=== PATIENT | female | born 1990 | race Caucasian/White ===

== ENCOUNTER → 2019-01-21 | Outpatient (REF) | payer OTHER, MEDICAID ==
[2019-01-21 18:30] LABS: HEMATOCRIT 34.5 % (36.0-47.0); HEMOGLOBIN 11.8 g/dl (12.0-15.5); MEAN CORPUSCULAR HEMOGLOBIN 29.7 pg (27.0-33.0); MEAN CORPUSCULAR HGB CONC 34.2 g/dl (32.0-36.5); MEAN CORPUSCULAR VOLUME 86.9 fl (80.0-96.0); PLATELET COUNT, AUTOMATED 185 10^3/uL (150-450); RED BLOOD COUNT 3.97 10^6/uL (4.00-5.40); WHITE BLOOD COUNT 7.4 10^3/uL (4.0-10.0)
[2019-01-21 19:02] LABS: HCG, SERUM QUANTITATIVE 82604 MIU/ML
[2019-01-21 19:36] LABS: RUBELLA IgG QUALITATIVE IMMUNE (IMMUNE)
[2019-01-21 20:05] LABS: HIV 1&2 SCREEN CENTAUR NEGATIVE (NEGATIVE)
[2019-01-23 10:01] LABS: HEPATITIS C VIRUS ABY INDEX < 0.0 INDEX (<0.8)
== END ==
LOC: M LAB REF 16:37
PROVIDERS: ATTEND Obstetrics & Gynecology
DX: O36.80X0 Pregnancy with inconclusive fetal viability, not applicable or unspecified (principal); Z32.01 Encounter for pregnancy test, result positive; Z3A.00 Weeks of gestation of pregnancy not specified

== ENCOUNTER → 2019-07-30 | Outpatient (REF) | payer OTHER ==
[~2019-07-30] MED LIST: BETA0.0543 TOP; CLON-412; CLON0.3T PO; GYNE3CRE PV; IBUP-1114 PO; LAMO5CHW4 PO; MAPA500T2 PO; ONDA-83 SL; ONDA8TAB10; PENI500T PO; PERI0.126 PO; PNVTAB4; PRENTAB9 PO; REGL10TA6 PO; TRAZ-257; VALT1TAB PO; VENL75CA47; ZOFR4TAB14 PO
== END ==
LOC: MERGE 17:12 → M LAB REF 17:12
PROVIDERS: ATTEND Obstetrics & Gynecology
DX: Z34.83 Encounter for supervision of other normal pregnancy, third trimester (principal)

== ENCOUNTER 2019-08-24 07:11 | Inpatient (IN) | payer MEDICAID, OTHER ==
[~2019-08-24] VITALS: Ht 157.5 cm; Wt 65.0 kg
[2019-08-24] MEDS ORDERED: OXYTOCIN 30 UNITS IN 0.9% NaCl 500ML IV BAG (J2590) As Ordered ONE (07:28)
[2019-08-24 07:53] VITALS: BP 120/81
[2019-08-24] MEDS ORDERED: LR 1,000 ML IV SCH (07:58)
[2019-08-24] MEDS ORDERED: OXYTOCIN DRIP 30 UNITS in IV 1 EA IV SCH (07:58)
[2019-08-24] MEDS ORDERED: MEASLES,MUMPS,RUBELLA VACCINE INJ (MMR-II) (90707) SC SCH (08:00)
[2019-08-24] MEDS ORDERED: ACETAMINOPHEN TAB 650MG DOSE (2X325MG) PO PRN (08:00)
[2019-08-24] MEDS ORDERED: ACETAMINOPHEN 500 MG TAB PO PRN (08:00)
[2019-08-24] MEDS ORDERED: DIBUCAINE 1% OINTMENT 30GM TOP PRN (08:00)
[2019-08-24] MEDS ORDERED: IBUPROFEN 800 MG TAB PO PRN (08:00)
[2019-08-24] MEDS ORDERED: DOCUSATE SODIUM 100 MG CAP PO PRN (08:00)
[2019-08-24] MEDS ORDERED: PROMETHAZINE 25 MG TAB PO PRN (08:00)
[2019-08-24] MEDS ORDERED: IBUPROFEN 600 MG TAB PO PRN (08:00)
[2019-08-24] MEDS ORDERED: ONDANSETRON 4MG/2ML VIAL (J2405) IV PRN (08:00)
[2019-08-24] MEDS ORDERED: RHOGAM 300 MCG (1500 IU) INJ (J2790) IM SCH (08:00)
[2019-08-24 08:26] LABS: HEMATOCRIT 35.7 % (36.0-47.0); HEMOGLOBIN 12.3 g/dl (12.0-15.5); MEAN CORPUSCULAR HEMOGLOBIN 29.9 pg (27.0-33.0); MEAN CORPUSCULAR HGB CONC 34.5 g/dl (32.0-36.5); MEAN CORPUSCULAR VOLUME 86.7 fl (80.0-96.0); PLATELET COUNT, AUTOMATED 212 10^3/uL (150-450); RED BLOOD COUNT 4.12 10^6/uL (4.00-5.40); WHITE BLOOD COUNT 10.8 10^3/uL (4.0-10.0)
[2019-08-24] MEDS: PRENATAL VITAMINS CHEWABLE TABLET PO SCH (09:00)
[2019-08-24 09:01] VITALS: BP 114/75
[2019-08-24 09:50] VITALS: BP 123/82
[2019-08-24 18:00] VITALS: BP 111/70
[2019-08-25 06:10] VITALS: BP 113/78
[2019-08-25] MEDS ORDERED: medroxyPROGESTERone ACET IM SUSP 150 MG/ML VIAL (J1050) IM ONE (08:00)
[2019-08-25] MEDS: PRENATAL VITAMINS CHEWABLE TABLET PO SCH (09:21)
[2019-08-25] MEDS ORDERED: INFLUENZA QUADRIVALENT PF VACCINE 0.5ML SYRINGE (90686) IM ONE (14:00)
== END 2019-08-25 19:45 | disposition home or self-care (01) | DRG 560 ==
LOC: M LDO 07:11 → M LDI 07:17 → M OBS 09:45
PROVIDERS: ADMIT Obstetrics & Gynecology; ATTEND Obstetrics & Gynecology
PROC: 10E0XZZ Delivery of Products of Conception, External Approach (ICD-10-PCS; principal; 2019-08-24)
DX: O80 Encounter for full-term uncomplicated delivery (principal); Z3A.39 39 weeks gestation of pregnancy; Z37.0 Single live birth

== ENCOUNTER 2020-06-10 18:08 | Emergency (ER) | payer OTHER ==
[~2020-06-10] VITALS: Ht 157.5 cm; Wt 68.2 kg
[2020-06-10] MEDS ORDERED: NS 1,000 ML IV ONE (18:30)
[2020-06-10] MEDS ORDERED: FLUO10CA16 PO (18:31)
[2020-06-10] MEDS ORDERED: METOCLOPRAMIDE INJ 10MG/2ML VIAL (J2765 PER 1) IV ONE (18:45)
[2020-06-10] MEDS ORDERED: DICYCLOMINE 10 MG CAP PO ONE (18:45)
[2020-06-10 18:49] LABS: BASO % 0.4 % (0.0-1.0); EOS % 0.4 % (0.0-3.0); HEMATOCRIT 39.4 % (36.0-47.0); HEMOGLOBIN 13.6 g/dl (12.0-15.5); LYMPH # 1.6 10^3/uL (1.5-5.0); LYMPH % 18.8 % (24.0-44.0); MEAN CORPUSCULAR HEMOGLOBIN 30.3 pg (27.0-33.0); MEAN CORPUSCULAR HGB CONC 34.5 g/dl (32.0-36.5); MEAN CORPUSCULAR VOLUME 87.8 fl (80.0-96.0); MONO # 0.6 10^3/uL (0.0-0.8); MONO % 6.8 % (0.0-5.0); NEUTROPHILS # 6.2 10^3/uL (1.5-8.5); NEUTROPHILS % 73.4 % (36.0-66.0); PLATELET COUNT, AUTOMATED 255 10^3/uL (150-450); RED BLOOD COUNT 4.49 10^6/uL (4.00-5.40); WHITE BLOOD COUNT 8.4 10^3/uL (4.0-10.0)
[2020-06-10 19:21] LABS: ALBUMIN 3.9 GM/DL (3.2-5.2); BILIRUBIN,DIRECT 0.1 MG/DL (0.0-0.2); BILIRUBIN,TOTAL 0.5 MG/DL (0.2-1.0); TOTAL PROTEIN 7.5 GM/DL (6.4-8.2)
[2020-06-10] MEDS ORDERED: POTASSIUM CHLORIDE 10 MEQ SR TABLET PO ONE (19:30)
[2020-06-10] MEDS ORDERED: REGL10TA6 PO (19:35)
[2020-06-10 19:47] VITALS: BP 134/71
== END 2020-06-10 19:49 | disposition home or self-care (01) ==
LOC: M ED 18:08
DX: R11.2 Nausea with vomiting, unspecified (principal); R19.7 Diarrhea, unspecified
CPT/HCPCS: 80047; 80076; 83690; 84702; 85025; 96361; 96374; 99284; J2765

== ENCOUNTER 2020-08-03 07:30 | Emergency (ER) | payer OTHER ==
[~2020-08-03] VITALS: Ht 157.5 cm; Wt 72.7 kg
[~2020-08-03 07:30] MED LIST changes: +FLUO10CA16 PO
[2020-08-03] MEDS ORDERED: ZOFR4TAB16 PO (07:48)
[2020-08-03] MEDS ORDERED: NS 1,000 ML IV ONE (08:00)
[2020-08-03] MEDS ORDERED: PANTOPRAZOLE 40MG VIAL (C9113 PER 1) IV ONE (08:00)
[2020-08-03] MEDS ORDERED: PROMETHAZINE INJ 25 MG/ML VIAL (J2550) IV ONE (08:00)
[2020-08-03 08:25] LABS: BASO % 0.5 % (0.0-1.0); EOS % 0.5 % (0.0-3.0); HEMATOCRIT 41.7 % (36.0-47.0); HEMOGLOBIN 14.3 g/dl (12.0-15.5); LYMPH # 1.3 10^3/uL (1.5-5.0); LYMPH % 19.1 % (24.0-44.0); MEAN CORPUSCULAR HEMOGLOBIN 31.1 pg (27.0-33.0); MEAN CORPUSCULAR HGB CONC 34.3 g/dl (32.0-36.5); MEAN CORPUSCULAR VOLUME 90.7 fl (80.0-96.0); MONO # 0.5 10^3/uL (0.0-0.8); MONO % 7.1 % (0.0-5.0); NEUTROPHILS # 4.8 10^3/uL (1.5-8.5); NEUTROPHILS % 72.3 % (36.0-66.0); PLATELET COUNT, AUTOMATED 255 10^3/uL (150-450); WHITE BLOOD COUNT 6.6 10^3/uL (4.0-10.0)
[2020-08-03 08:54] LABS: ALBUMIN 3.5 GM/DL (3.2-5.2); ALT/SGPT 35 U/L (12-78); BILIRUBIN,DIRECT 0.2 MG/DL (0.0-0.2); BILIRUBIN,TOTAL 0.6 MG/DL (0.2-1.0); BLOOD UREA NITROGEN 11 MG/DL (7-18); CALCIUM LEVEL 8.4 MG/DL (8.5-10.1); CARBON DIOXIDE LEVEL 23 MEQ/L (21-32); CHLORIDE LEVEL 107 MEQ/L (98-107); CREATININE FOR GFR 0.84 MG/DL (0.55-1.30); GLOMERULAR FILTRATION RATE > 60.0 (>60); GLUCOSE, FASTING 136 MG/DL (70-100); LIPASE 80 U/L (73-393); POTASSIUM SERUM 3.6 MEQ/L (3.5-5.1); SODIUM LEVEL 141 MEQ/L (136-145); TOTAL PROTEIN 6.9 GM/DL (6.4-8.2)
[2020-08-03 10:03] VITALS: BP 134/86
[2020-08-03] MEDS ORDERED: PROM25TA22 PO (10:16)
[2020-08-03] MEDS ORDERED: PEPC1TAB5 PO (10:16)
== END 2020-08-03 10:23 | disposition home or self-care (01) ==
LOC: M ED 07:30 → EDBD 07:30 → M ED 10:23
DX: G89.29 Other chronic pain (principal); R10.9 Unspecified abdominal pain; R11.2 Nausea with vomiting, unspecified; R19.7 Diarrhea, unspecified; F33.9 Major depressive disorder, recurrent, unspecified; F41.9 Anxiety disorder, unspecified; Z79.899 Other long term (current) drug therapy
CPT/HCPCS: 36415; 80048; 80076; 83690; 84702; 85025; 96361; 96374; 96375; 99284; C9113

== ENCOUNTER → 2020-08-12 | Outpatient (CLI) | payer OTHER ==
[~2020-08-12] MED LIST changes: +CAPS25CR TOP; +HALO5TA PO; +PEPC1TAB5 PO; +PROM25TA22 PO; +ZOFR4TAB16 PO
--- NOTE | 2020-08-25 08:26 | REP ---
LIVER ULTRASOUND: CLINICAL: Nausea. TECHNIQUE: Real time, kohler scale ultrasound examination using curved array transducer. FINDINGS: The liver and visualized pancreas are normal in contour, size and echogenicity without focal hepatic or pancreatic lesions identified. The gallbladder is normal and without gallstones, wall thickening or pericholecystic fluid. No biliary ductal dilatation is appreciated and the common bile duct measures 4.5 mm diameter. The right kidney is normal in reniform shape and measures 11.2 x 5.1 x 3.9 cm without hydronephrosis. No ascites in the visualized right upper quadrant. IMPRESSION: Normal liver/right upper quadrant ultrasound. MTDD
== END ==
LOC: M RAD 06:48
PROVIDERS: ATTEND Internal Medicine Gastroenterology
DX: R11.0 Nausea (principal)

== ENCOUNTER 2020-08-16 23:42 | Emergency (ER) | payer OTHER ==
[~2020-08-16] VITALS: Ht 157.5 cm; Wt 75.0 kg
[~2020-08-16 23:42] MED LIST changes: -CAPS25CR TOP; -HALO5TA PO
[2020-08-17] MEDS ORDERED: HALOPERIDOL 5MG/ML VIAL (J1630 PER 1) IV ONE
[2020-08-17] MEDS ORDERED: CAPS25CR TOP (01:36)
[2020-08-17 02:12] VITALS: BP 138/74
== END 2020-08-17 02:13 | disposition home or self-care (01) ==
LOC: M ED 23:42
DX: F12.188 Cannabis abuse with other cannabis-induced disorder (principal); R11.2 Nausea with vomiting, unspecified; F41.9 Anxiety disorder, unspecified; Z79.899 Other long term (current) drug therapy
CPT/HCPCS: 80047; 84702; 96374; 99284; J1630

== ENCOUNTER 2020-08-21 04:17 | Emergency (ER) | payer OTHER ==
[~2020-08-21] VITALS: Ht 157.5 cm; Wt 72.4 kg
[~2020-08-21 04:17] MED LIST changes: +CAPS25CR TOP
[2020-08-21 04:58] LABS: BASO # 0.1 10^3/uL (0.0-0.2); BASO % 0.7 % (0.0-1.0); EOS % 0.6 % (0.0-3.0); HEMATOCRIT 42.2 % (36.0-47.0); HEMOGLOBIN 14.3 g/dl (12.0-15.5); LYMPH # 2.4 10^3/uL (1.5-5.0); LYMPH % 35.8 % (24.0-44.0); MEAN CORPUSCULAR HEMOGLOBIN 30.6 pg (27.0-33.0); MEAN CORPUSCULAR HGB CONC 33.9 g/dl (32.0-36.5); MEAN CORPUSCULAR VOLUME 90.2 fl (80.0-96.0); MONO # 0.6 10^3/uL (0.0-0.8); MONO % 8.5 % (0.0-5.0); NEUTROPHILS # 3.6 10^3/uL (1.5-8.5); PLATELET COUNT, AUTOMATED 311 10^3/uL (150-450); RED BLOOD COUNT 4.68 10^6/uL (4.00-5.40); WHITE BLOOD COUNT 6.7 10^3/uL (4.0-10.0)
[2020-08-21 05:26] LABS: ALBUMIN 3.6 GM/DL (3.2-5.2); ALT/SGPT 31 U/L (12-78); BILIRUBIN,DIRECT 0.3 MG/DL (0.0-0.2); BILIRUBIN,TOTAL 0.9 MG/DL (0.2-1.0); LIPASE 62 U/L (73-393); TOTAL PROTEIN 7.4 GM/DL (6.4-8.2)
[2020-08-21] MEDS ORDERED: NS 1,000 ML IV ONE (05:30)
[2020-08-21] MEDS ORDERED: HALOPERIDOL 5MG/ML VIAL (J1630 PER 1) IV ONE (05:30)
[2020-08-21 06:17] LABS: HCG, SERUM QUALITATIVE NEGATIVE (NEGATIVE)
[2020-08-21] MEDS ORDERED: PROMETHAZINE INJ 25 MG/ML VIAL (J2550) IV ONE (06:30)
[2020-08-21] MEDS ORDERED: PROM25TA22 PO (06:49)
[2020-08-21] MEDS ORDERED: HALO5TA PO (06:49)
[2020-08-21 07:16] VITALS: BP 105/79
== END 2020-08-21 07:44 | disposition home or self-care (01) ==
LOC: M ED 04:17
DX: F12.188 Cannabis abuse with other cannabis-induced disorder (principal); Z79.899 Other long term (current) drug therapy
CPT/HCPCS: 80047; 80076; 83690; 84703; 85025; 93041; 96361; 96374; 96375; 99284; J1630

== ENCOUNTER → 2020-08-25 | Outpatient (CLI) | payer OTHER ==
[~2020-08-25] MED LIST changes: +HALO5TA PO
--- NOTE | 2020-09-01 06:22 | REP ---
HEPATOBILIARY SCAN WITH GALLBLADDER EJECTION FRACTION HISTORY: Nausea. Other specified diseases of the gallbladder. TECHNIQUE: 6.6 mCi of Technetium-99m mebrofenin is injected and 5 minute images are acquired over a 60 minute interval. At 65 minutes post-injection, the patient ingested 8 ounces of Ensure and an additional 60 minutes of dynamic images was completed with regions of interest drawn around the gallbladder to plot its ejection fraction. SCINTIGRAPHIC FINDINGS: The initial hepatocellular parenchymal uptake phase is normal and homogeneous. Extrahepatic bile duct and bowel labeling is first visualized at 10 minutes. The gallbladder is first visualized at 15 minutes. Subsequent images demonstrate normal washout from the liver parenchyma into the gallbladder and small intestine. The gallbladder ejection fraction is normal at 50%. IMPRESSION: Normal hepatobiliary scan and gallbladder ejection fraction. MTDD
== END ==
LOC: M RAD 07:33
PROVIDERS: ATTEND Internal Medicine Gastroenterology
DX: K82.8 Other specified diseases of gallbladder (principal); R11.0 Nausea
CPT/HCPCS: 78227; A9537

== ENCOUNTER → 2020-10-19 | Outpatient (CLI) | payer OTHER ==
[~2020-10-19] MED LIST changes: +DICY20TA11 PO; +OMEP-218 PO; +ONDA8TAB10 PO
== END ==
LOC: M LABSMTC 11:30
PROVIDERS: ATTEND Anesthesiology
DX: Z01.812 Encounter for preprocedural laboratory examination (principal); Z20.828 Contact with and (suspected) exposure to other viral communicable diseases

== ENCOUNTER 2020-10-24 12:45 | Day surgery (SDC) | payer OTHER ==
[~2020-10-24] VITALS: Ht 157.5 cm; Wt 80.3 kg
[~2020-10-24 12:45] MED LIST changes: +NS 1,000 ML IV ONE
[2020-10-24] MEDS ORDERED: LIDOCAINE 2% 100MG/5ML SDV (FOR ANES.) As Ordered ONE (14:08)
[2020-10-24] MEDS ORDERED: fentaNYL 100 MCG/2 ML INJECTION (J3010) As Ordered ONE (14:08)
[2020-10-24] MEDS ORDERED: propofoL 200 MG/20 ML VIAL As Ordered ONE ×2 (14:08→15:33)
--- NOTE | 2020-10-24 15:27 | ROOR ---
Patient Name: Ivelisse Potts Procedure Date: 10/24/2020 3:05 PM Date of : 1990 Age: 30 Room: [facility] Gender: Female Note Status: Finalized Procedure: Upper GI endoscopy Indications: Heartburn, Endoscopy to assess diarrhea in patient suspected of having disease of the small-bowel, Nausea with vomiting (Cannabis Hyperemesis suspected. Symptoms persist despite reduction/elimination of cannabis) Providers: Samson GORMAN MD Referring MD: Sveta Núñez NP Requesting Provider: Medicines: Monitored Anesthesia Care Complications: No immediate complications. Procedure: Pre-Anesthesia Assessment: - The heart rate, respiratory rate, oxygen saturations, blood pressure, adequacy of pulmonary ventilation, and response to care were monitored throughout the procedure. The Endoscope was introduced through the mouth, and advanced to the second part of duodenum. The upper GI endoscopy was accomplished without difficulty. The patient tolerated the procedure well. Findings: Mildly severe esophagitis with no bleeding was found at the gastroesophageal junction. Biopsies were taken with a cold forceps for histology. The entire examined stomach was normal. (Large volume) The examined duodenum was normal. Biopsies for histology were taken with a cold forceps for evaluation of celiac disease. Impression: - Mildl esophagitis. Biopsied. - Normal stomach. - Normal examined duodenum. Biopsied. Recommendation: - Use Prilosec (omeprazole) 40 mg PO daily. - Telephone endoscopist for pathology results in 2 weeks. Procedure Code(s): --- Professional --- 43424, Esophagogastroduodenoscopy, flexible, transoral; with biopsy, single or multiple Diagnosis Code(s): --- Professional --- R11.2, Nausea with vomiting, unspecified R19.7, Diarrhea, unspecified R12, Heartburn K20.9, Esophagitis, unspecified CPT copyright 2019 [employer]. All rights reserved. The codes documented in this report are preliminary and upon greenhouse worker review may be revised to meet current compliance requirements. Samson Gorman MD Samson GORMAN MD 10/24/2020 3:26:52 PM Electronically signed by Samson GORMAN MD Number of Addenda: 0 Note Initiated On: 10/24/2020 3:05 PM Estimated Blood Loss: Estimated blood loss: none.
--- NOTE | 2020-10-24 15:38 | ROOR ---
Patient Name: Ivelisse Potts Procedure Date: 10/24/2020 3:06 PM Date of : 1990 Age: 30 Room: [facility] Gender: Female Note Status: Finalized Procedure: Colonoscopy Indications: Generalized abdominal pain, Suspected irritable bowel syndrome, Diarrhea Providers: Samson GORMAN MD Referring MD: Sveta Núñez NP Requesting Provider: Medicines: Monitored Anesthesia Care Complications: No immediate complications. Procedure: Pre-Anesthesia Assessment: - The heart rate, respiratory rate, oxygen saturations, blood pressure, adequacy of pulmonary ventilation, and response to care were monitored throughout the procedure. The Colonoscope was introduced through the anus and advanced to 10 cm into the ileum. The colonoscopy was performed without difficulty. The patient tolerated the procedure well. The quality of the bowel preparation was good. Findings: The perianal and digital rectal examinations were normal. Small Internal Hemorrhoids. The terminal ileum appeared normal. Retroflexion in the right colon was performed. The colon (entire examined portion) appeared normal. Biopsies for histology were taken with a cold forceps for evaluation of microscopic colitis. Impression: - Small Internal Hemorrhoids. - The examined portion of the ileum was normal. - The entire examined colon is normal. - Biopsies were taken with a cold forceps for evaluation of microscopic colitis. - (Irritable Bowel Syndrome/IBS suspected.) Recommendation: - Telephone endoscopist for pathology results in 2 weeks. - Continue present medications. Procedure Code(s): --- Professional --- 26305, Colonoscopy, flexible; with biopsy, single or multiple Diagnosis Code(s): --- Professional --- R19.7, Diarrhea, unspecified R10.84, Generalized abdominal pain CPT copyright 2019 [employer]. All rights reserved. The codes documented in this report are preliminary and upon burial vault deliverer and installer review may be revised to meet current compliance requirements. Samson Gorman MD Samson GORMAN MD 10/24/2020 3:38:21 PM Electronically signed by Samson GORMAN MD Number of Addenda: 0 Note Initiated On: 10/24/2020 3:06 PM Estimated Blood Loss: Estimated blood loss: none.
[2020-10-24 16:06] VITALS: BP 133/85
== END 2020-10-24 16:08 | disposition home or self-care (01) ==
LOC: M OPP 12:45
PROVIDERS: ATTEND Internal Medicine Gastroenterology
DX: R10.84 Generalized abdominal pain (principal); K64.8 Other hemorrhoids; R19.7 Diarrhea, unspecified; K20.90 Esophagitis, unspecified without bleeding; R12 Heartburn; R11.2 Nausea with vomiting, unspecified; Z79.899 Other long term (current) drug therapy; Z87.891 Personal history of nicotine dependence
CPT/HCPCS: 43239; 45380; 88305; J3010

== ENCOUNTER 2021-05-12 15:33 | Emergency (ER) | payer OTHER ==
[~2021-05-12] VITALS: Ht 157.5 cm; Wt 80.5 kg
[~2021-05-12 15:33] MED LIST changes: -NS 1,000 ML IV ONE
[2021-05-12] MEDS ORDERED: FLUC150T PO (15:55)
[2021-05-12] MEDS ORDERED: NYST50SS PO (15:55)
[2021-05-12] MEDS ORDERED: CLON-412 PO (15:55)
[2021-05-12 16:59] LABS: BASO % 0.5 % (0.0-1.0); EOS # 0.1 10^3/uL (0.0-0.5); EOS % 1.2 % (0.0-3.0); HEMATOCRIT 42.7 % (36.0-47.0); HEMOGLOBIN 14.7 g/dl (12.0-15.5); LYMPH # 2.3 10^3/uL (1.5-5.0); LYMPH % 41.4 % (24.0-44.0); MEAN CORPUSCULAR HEMOGLOBIN 33.3 pg (27.0-33.0); MEAN CORPUSCULAR HGB CONC 34.4 g/dl (32.0-36.5); MEAN CORPUSCULAR VOLUME 96.8 fl (80.0-96.0); MONO # 0.5 10^3/uL (0.0-0.8); MONO % 8.5 % (2.0-8.0); NEUTROPHILS # 2.7 10^3/uL (1.5-8.5); NEUTROPHILS % 48.2 % (36.0-66.0); PLATELET COUNT, AUTOMATED 216 10^3/uL (150-450); RED BLOOD COUNT 4.41 10^6/uL (4.00-5.40); WHITE BLOOD COUNT 5.7 10^3/uL (4.0-10.0)
[2021-05-12] MEDS ORDERED: diazePAM 5MG TABLET PO ONE (17:00)
[2021-05-12 17:07] LABS: BLOOD UREA NITROGEN 3 MG/DL (7-18); CALCIUM LEVEL 9.1 MG/DL (8.5-10.1); CARBON DIOXIDE LEVEL 25 MEQ/L (21-32); CHLORIDE LEVEL 106 MEQ/L (98-107); CK-MB VALUE MASS < 1.0 NG/ML (<3.6); CPK CREATINE PHOSPHOKINASE 128 U/L (26-192); CREATININE FOR GFR 0.74 MG/DL (0.55-1.30); GLOMERULAR FILTRATION RATE > 60.0 (>60); GLUCOSE, FASTING 106 MG/DL (70-100); MB/CK RELATIVE INDEX 0.78 (< OR =4); POTASSIUM SERUM 3.6 MEQ/L (3.5-5.1); SODIUM LEVEL 140 MEQ/L (136-145); TROPONIN I < 0.02 NG/ML (< 0.10)
--- NOTE | 2021-05-12 17:33 | REP ---
INDICATION: CHEST PAIN. COMPARISON: None. FINDINGS: The technique utilized in obtaining the radiograph has magnified the cardiac silhouette and accentuated the interstitial markings. The superior mediastinal structures are midline. The cardiac silhouette is unremarkable in size, shape, and position. The diaphragmatic surfaces of the lungs are regular, and the costophrenic angles are clear. The pulmonary dior are clear. The imaged osseous structures are intact. IMPRESSION: There is no acute cardiopulmonary disease. <Electronically signed by Pardeep Siomns > 05/12/21 [id number]
[2021-05-12] MEDS ORDERED: KETOROLAC 30 MG/ML 1ML VIAL IV ONE (17:45)
[2021-05-12] MEDS ORDERED: NAPR-837 PO (19:22)
[2021-05-12 19:41] VITALS: BP 113/75
--- NOTE | 2021-05-13 07:45 | ECGEPIP ---
[facility] - ED Test Date: 2021-05-12 Pat Name: GONZALO BARRIOS Department: Room: - Gender: Female Sand Conditioner: MICHELLE : 1990 Requested By: Javed Traore Order Number: [id number] Reading MD: Samson Mahmood Measurements Intervals [place] Rate: 92 P: 39 TX: 188 QRS: 54 QRSD: 76 T: 30 QT: 344 QTc: 425 Interpretive Statements Normal sinus rhythm Baseline artifact Comparison tracing not on file Electronically Signed on 05-13-2021 7:44:55 EDT by Samson Mahmood
== END 2021-05-12 20:04 | disposition home or self-care (01) ==
LOC: M ED 15:33
DX: R07.9 Chest pain, unspecified (principal); F41.9 Anxiety disorder, unspecified; F17.200 Nicotine dependence, unspecified, uncomplicated
CPT/HCPCS: 71045; 80048; 82550; 82553; 84702; 85025; 93005; 96374; 99284; J1885

== ENCOUNTER 2021-06-21 05:27 | Emergency (ER) | payer OTHER ==
[~2021-06-21] VITALS: Ht 162.6 cm; Wt 81.8 kg
[~2021-06-21 05:27] MED LIST changes: +CLON-412 PO; +FLUC150T PO; +NAPR-837 PO; +NYST50SS PO
[2021-06-21 06:08] LABS: BASO % 0.4 % (0.0-1.0); EOS # 0.1 10^3/uL (0.0-0.5); EOS % 0.9 % (0.0-3.0); HEMATOCRIT 46.7 % (36.0-47.0); HEMOGLOBIN 16.5 g/dl (12.0-15.5); LYMPH # 2.4 10^3/uL (1.5-5.0); LYMPH % 30.7 % (24.0-44.0); MEAN CORPUSCULAR HEMOGLOBIN 34.5 pg (27.0-33.0); MEAN CORPUSCULAR HGB CONC 35.3 g/dl (32.0-36.5); MEAN CORPUSCULAR VOLUME 97.7 fl (80.0-96.0); MONO # 0.7 10^3/uL (0.0-0.8); MONO % 9.5 % (2.0-8.0); NEUTROPHILS # 4.5 10^3/uL (1.5-8.5); NEUTROPHILS % 58.2 % (36.0-66.0); PLATELET COUNT, AUTOMATED 230 10^3/uL (150-450); RED BLOOD COUNT 4.78 10^6/uL (4.00-5.40); WHITE BLOOD COUNT 7.8 10^3/uL (4.0-10.0)
[2021-06-21] MEDS ORDERED: METOCLOPRAMIDE INJ 10MG/2ML VIAL (J2765 PER 1) IV ONE (06:15)
[2021-06-21 06:32] LABS: ALT/SGPT 155 U/L (12-78); BILIRUBIN,DIRECT 0.6 MG/DL (0.0-0.2); BILIRUBIN,TOTAL 1.2 MG/DL (0.2-1.0); LIPASE 71 U/L (73-393); TOTAL PROTEIN 7.6 GM/DL (6.4-8.2)
[2021-06-21] MEDS ORDERED: KETOROLAC 30 MG/ML 1ML VIAL IV ONE (06:40)
[2021-06-21] MEDS ORDERED: NS 1,000 ML IV ONE ×2 (06:40→08:40)
--- NOTE | 2021-06-21 09:09 | REPVR ---
PROCEDURE INFORMATION: Exam: US Abdomen, Limited; Right Upper Quadrant Exam date and time: 06/21/2021 7:38 AM Age: 30 years old Clinical indication: Abdominal pain; Additional info: Abd pain, n, v TECHNIQUE: Imaging protocol: US abdomen. Real time ultrasound with image documentation. Limited exam focused on the right upper quadrant. COMPARISON: LIVER US 08/12/2020 7:30 AM FINDINGS: Liver: Increased hepatic parenchymal echogenicity with no appreciable mass in the imaged portions of the liver. Liver appears mildly enlarged. Gallbladder: No cholelithiasis. No gallbladder wall thickening or pericholecystic fluid. No sonographic Augustine's sign. Common bile duct: The common bile duct measures 5 -6 mm. Pancreas: The imaged pancreas is unremarkable. Right kidney: The right kidney measures 9.9 cm. No hydronephrosis. IMPRESSION: 1. No cholelithiasis or evidence of cholecystitis. 2. Hepatomegaly. Echogenic hepatic parenchyma likely representing steatosis, versus fibrosis or hepatitis. Electronically signed by: Jayesh Liriano On 06/21/2021 09:08:37 AM
--- NOTE | 2021-06-21 09:11 | REPVR ---
PROCEDURE INFORMATION: Exam: US Pelvis Complete, Transabdominal and US Duplex Artery or Vein, Ovaries, Limited Exam date and time: 06/21/2021 7:38 AM Age: 30 years old Clinical indication: Pelvic pain; Additional info: Bilateral pelvic pain TECHNIQUE: Imaging protocol: Real-time transabdominal pelvic ultrasound with image documentation. Real-time duplex ultrasound scan of the arterial or venous flow of the ovaries with B-mode, color Doppler flow and spectral waveform analysis. Complete Pelvis, Limited Duplex. Doppler evaluation included for the assessment of pelvic pain and potential for ovarian torsion. COMPARISON: GALLBLADDER US 06/21/2021 7:18 AM FINDINGS: Uterus/cervix: The uterus measures 6.1 x 3.0 by 4.1 cm. Endometrial thickness measures 4.1 mm. Right adnexa: Right ovary measures 3.5 x 2.2 x 1.6 cm. No appreciable mass. Normal Doppler flow, degraded waveforms although with arterial and venous waveforms identified. Left adnexa: The left ovary measures 3.3 x 2.4 x 2.9 cm. No appreciable mass. Normal Doppler flow, degraded waveforms although with arterial and venous waveforms identified. Free fluid: None. Bladder: Decompressed. IMPRESSION: No evidence of ovarian torsion or other acute abnormality. Electronically signed by: Jayesh Liriano On 06/21/2021 09:11:14 AM
[2021-06-21 10:11] LABS: HEPATITIS B SURFACE ANTIGEN NEGATIVE (NEGATIVE)
[2021-06-21 10:40] LABS: HEPATITIS B CORE ANTIBODY IGM NEGATIVE (NEGATIVE)
[2021-06-21 10:41] LABS: HEPATITIS A ANTIBODY IGM NEGATIVE (NEGATIVE)
[2021-06-21 10:59] LABS: GC DNA AMPLIFICATION NEGATIVE (NEGATIVE)
[2021-06-21 12:30] VITALS: BP 143/106
--- NOTE | 2021-06-24 09:41 | ED PDOC ---
Post-Departure Follow-Up radiology report faxed to christy Toney Sarah MD Jun 24, 2021 09:41
== END 2021-06-21 12:30 | disposition home or self-care (01) ==
LOC: M ED 05:27
DX: R10.9 Unspecified abdominal pain (principal); R16.0 Hepatomegaly, not elsewhere classified; R11.2 Nausea with vomiting, unspecified; R19.7 Diarrhea, unspecified; N89.8 Other specified noninflammatory disorders of vagina; I10 Essential (primary) hypertension
CPT/HCPCS: 76705; 76856; 80047; 80076; 81001; 83690; 84702; 85025; 86705; 86709; 86803; 87086; 87210; 87340; 87661; 93041; 96361; 96374; 96375; 99284; J1885; J2765

== ENCOUNTER → 2021-06-30 | Outpatient (CLI) | payer OTHER ==
--- NOTE | 2021-06-30 12:22 | REPVR ---
PROCEDURE INFORMATION: Exam: CT Head Without Contrast Exam date and time: 06/30/2021 11:54 AM Age: 30 years old Clinical indication: Other: Nausea, vomitting; Additional info: Nausea, vomiting TECHNIQUE: Imaging protocol: Computed tomography of the head without contrast. Radiation optimization: All CT scans at this facility use at least one of these dose optimization techniques: automated exposure control; mA and/or kV adjustment per patient size (includes targeted exams where dose is matched to clinical indication); or iterative reconstruction. COMPARISON: CT Head without contrast 07/29/2017 10:06 AM FINDINGS: Brain: No acute intracranial hemorrhage, cerebral edema, or midline shift. Cerebral ventricles: No hydrocephalus. Paranasal sinuses: There is no acute sinusitis. Mastoid air cells: Visualized mastoid air cells are well aerated. Orbital cavity: Unremarkable as visualized. Bones/joints: No acute fracture. Soft tissues: Unremarkable. IMPRESSION: No acute intracranial abnormality. Electronically signed by: Chino Zheng On 06/30/2021 12:21:42 PM
== END ==
LOC: M RAD 11:35
PROVIDERS: ATTEND Pediatrics
DX: R11.2 Nausea with vomiting, unspecified (principal)

== ENCOUNTER 2021-09-19 12:20 | Emergency (ER) | payer OTHER, MEDICAID ==
[2021-09-19] MEDS ORDERED: NS 1,000 ML IV ONE (12:45)
[2021-09-19] MEDS ORDERED: FLUO10CA16 PO (13:20)
[2021-09-19] MEDS ORDERED: CLON0.3T PO (13:20)
--- OUTSIDE RECORDS SUMMARY | 2021-09-19 13:25 | CCD ---
Author Organization Unknown Address [address] [place] [address] Phone [phone] Care Team Providers Care Supply Chain Director Name Role Phone ANDREW GORMAN MD 107 [phone] [facility]) 110 [phone] Allergies Code Code System Name Reaction Severity Status Onset NKDA Medications Name Status Start Date Stop Date clonidine 0.1-0.3 mg Active Not available fluoxetine Active Not available lisinopril 10 mg tablet Take 1 tablet every day by oral route. Active Not available ondansetron [address] 1 tablet every 8 hours by translingual route as needed. Active Not available Problems Name Status Onset Date Source Abnormal Weight Loss Active 11/07/2017 History Glycosuria Unknown 11/07/2017 History Procedure by Method Unknown 11/07/2017 History Eruption Unknown 03/19/2018 History Depressive Disorder Active 05/13/2018 History Dental Caries on Smooth Surface Penetrating into Pulp Unknown 07/30/2018 History Nausea Unknown 01/13/2019 History Mixed Anxiety and Depressive Disorder Active 06/29/2020 History Nausea and Vomiting Unknown 06/29/2020 History Diarrhea Active 06/29/2020 History Epigastric Pain Active 06/29/2020 History Clinical Finding Unknown 06/29/2020 History Nondependent Cannabis Abuse in Remission Active 020 History Internal Hemorrhoids Active 06/26/2021 Steatohepatitis Active 06/26/2021 Procedures Date Name Performed by 06/27/2021 CT, Head, W/o Contrast Information not a vailable Notes: 10-14 teeth removed Results Lab Results None recorded. Past Encounters 06/27/2021 Patient New to Provider; Steatohepatitis; Body Mass Index 30+ - Obesity; Elevated Liver Enzymes Level; Elevated Blood-pressure Reading without Diagnosis of Hypertension; Nausea and Vomiting Jil Wells MD: [address] [place] [address], Ph. Social History Tobacco Smoking Status Current Some Day Smoker Notes: 11/28 p ack week Vaccine List None recorded. Plan of Care Reminders Provider Appointments None recorded. Lab None recorded. Referral None recorded. Procedures None recorded. Surgeries None recorded. Imaging None recorded. Vitals 06/27/2021 10:20AM SAME DAY 20 Height Weight BMI Blood Pressure 62 in 171 lbs 2 oz 31.3 kg/m2 147/113 mm[Hg] 08/24/2020 Height Weight BMI Blood Pressure 62 in 162 lbs 2.08 oz 29.76 kg/m2 138/99 mm[H g] 06/29/2020 Height Weight BMI Blood Pressure 62 in 157 lbs 2.08 oz 28.84 kg/m2 124/84 mm[H g] 01/13/2019 Height Weight BMI Blood Pressure 62 in 135 lbs 4 oz 24.83 kg/m2 117/71 mm[Hg]
--- OUTSIDE RECORDS SUMMARY | 2021-09-19 13:25 | CCD | Continuity of Care Document ---
Author Author [facility] Organization [facility] Address Unknown Phone Unavailable Care Team Providers Care Bed Machine Operator Name Role Phone Adarsh CAPACITOR REPAIRER, Charleen Castillo Unavailable Unavailable Allergies, Adverse Reactions, Alerts Substance Reaction Status Criticality No Known Allergies Active No Information Medications Medication Instructions Dosage Effective Dates (start - stop) Sta tus Comments medroxyprogesterone 150 mg/mL intramuscular suspension IM every 10-13 weeks - Active medroxyprogesterone 150 mg/mL intramuscular suspension IM every 10-13 weeks - Active fluoxetine 20 mg capsule take 1 capsule by oral route every day in the morning 20 MG - Active lisinopril 10 mg tablet take 1 tablet by oral route every day 10 MG - Active clonidine HCl 0.1 mg tablet take [address] oral rout e 3 times every day as needed 0.1 MG - Active Problems Condition Effective Dates (start - stop) Clinical Status C omments Body mass index (BMI) 30.0-30.9, adult - Encounter for surveillance of injectable contraceptive Encounter for test, result negative Encounter for oth general cnsl and advice on contraception Encounter for initial prescription of injectable contracep Human immunodeficiency virus [HIV] counseling Other sex counseling Encounter for oth general cnsl and advice on contraception Encounter for surveillance of injectable contraceptive Other sex counseling Acute vaginitis Other specified noninflammatory disorders of vagina Acute vaginitis Encounter for test, result negative Pelvic and perineal pain Abnormal uterine and vaginal bleeding, unspecified Encounter for oth general cnsl and advice on contraception Encounter for surveillance of injectable contraceptive Human immunodeficiency virus [HIV] counseling Other sex counseling Nausea with vomiting, unspecified Encntr screen for infections w sexl mode of transmiss Pelvic and perineal pain Abnormal uterine and vaginal bleeding, unspecified Encounter for surveillance of injectable contraceptive Acute vaginitis Encounter for test, result negative Other sex counseling Encounter for oth general cnsl and advice on contraception Pruritus vulvae Encounter for surveillance of injectable contraceptive Encounter for test, result negative Other sex counseling Encounter for oth general cnsl and advice on contraception Encounter for initial prescription of injectable contracep Acute vaginitis Other specified noninflammatory disorders of vagina Human immunodeficiency virus [HIV] counseling Other sex counseling Encounter for oth general cnsl and advice on contraception Encntr for pie filler exam (general) (routine) w abnormal findings Encounter for surveillance of injectable contraceptive Encntr screen for infections w sexl mode of transmiss High risk heterosexual behavior Encounter for test, result negative Encounter for surveillance of injectable contraceptive Encounter for test, result negative Human immunodeficiency virus [HIV] counseling Other sex counseling Encounter for oth general cnsl and advice on contraception Encounter for initial prescription of injectable contracep Procedures Procedure Date URINE TEST OFFICE VISIT, EST Depo/Medroxyprogesterone Inj. 150 Mg Nurse/[place] 021 THER/PROPH/DIAG INJ, SC/IM HCS Without Test CVR Blood Pressure CVR Med.Svc. Height/Weight CVR Can Marker.Svc. Contraceptive CVR Can Marker.Svc. Other CVR Can Marker.Svc. STI / H Results Test Name Date and Time Measure Units Reference Range Abnormal Flag St atus Comments Panel Description: High Sensitivity Urine Test Fi nal High Sensitivity Urine Test 09:37:42 N egativeLot: [id number]: 11/24/2022 Final Advance Directives Directive Yes / No Effective Date File Name No Information Encounters Encounter Description Practice Location Reason(s) For Visit Diagnose s Date Provider Providers Copied on Encounter OFFICE VISIT, EST [facility], [address] , [place], [place], [id number], tel:[phone] [facility] Control (chi ef complaint)Depo (chief complaint) Encounter for surveillance of injectable contraceptiveEncounter for test, result negativeEncounter for oth general cnsl and advice on contraceptionEncounter for initial prescription of injectable contracepHuman immunodeficiency virus [HIV] counselingOther sex counseling Adarsh Castillo. [address] [place], [place], [id number], [place]. tel:[phone] Referring Provider: Charleen Altamirano, [address], [place], [id number]. tel:[phone] [facility], [address], [place], [id number], [place] tel:[phone] [facility] Encounter for oth g eneral cnsl and advice on contraceptionEncounter for surveillance of injectable contraceptiveOther sex counselingAcute vaginitisOther specified noninflammatory disorders of vagina Adarsh Castillo. [address] [place], [place], [id number], [place]. tel:[phone] Referring Provider: Charleen Altamirano, [address], [place], [id number]. tel:[phone] [facility], [address] [place] [address], [id number], [place] tel:[phone] [facility] Acute vaginitis Adarsh Castillo. [address], [place], [id number], [place]. tel:[phone] [facility], [address] [place] [address], [id number], [place] tel:[phone] [facility] Encounter for pregn catarina test, result negativePelvic and perineal painAbnormal uterine and vaginal bleeding, unspecifiedEncounter for oth general cnsl and advice on contraceptionEncounter for surveillance of injectable contraceptiveHuman immunodeficiency virus [HIV] counselingOther sex counselingNausea with vomiting, unspecifiedEncntr screen for infections w sexl mode of transmiss Adarsh May. [address], [place], [id number], [place]. tel:[phone] Referring Provider: Charleen Altamirano, [address] [place] [address], [id number]. tel:[phone] [facility], [address] [place] [address], [id number], [place] tel:[phone] [facility] Pelvic and perineal painAbnormal uterine and vaginal bleeding, unspecified Paulette Alexandra. [address], [place], [id number], [place]. tel:[phone] Referring Provider: Alexandra Caldwell, [address] [place] [address], [id number]. tel:[phone] [facility], [address] [place] [address], [id number], [place] tel:[phone] [facility] Encounter for surve illance of injectable contraceptive Marilyn Sim. [address], [place], [id number], [place]. tel:[phone] Referring Provider: Mindy Sanders, [address] [place] [address], [id number]. tel:[phone] Provider: LORRAINE Nurse/[place]. [facility], [address] [place] [address], [id number], [place] tel:[phone] [facility] Acute vaginitis Marilyn Sim. [address] [place] [address], [id number], [place]. tel:[phone] [facility], [address] [place] [address], [id number], [place] tel:[phone] [facility] Encounter for pregn catarina test, result negativeOther sex counselingEncounter for oth general cnsl and advice on contraceptionPruritus vulvaeEncounter for surveillance of injectable contraceptive Marilyn Sim. [address], [place], [id number], [place]. tel:[phone] Referring Provider: Mindy Sanders, [address] [place] [address], [id number]. tel:[phone] [facility], [address] [place] [address], [id number], [place] tel:[phone] [facility] Encounter for pregn catarina test, result negativeOther sex counselingEncounter for oth general cnsl and advice on contraceptionEncounter for initial prescription of injectable contracepAcute vaginitisOther specified noninflammatory disorders of vagina Kwame Silva. [address] [place] [address], [id number], [place]. tel:[phone] [facility], [address] [place] [address], [id number], [place] tel:[phone] [facility] Human immunodeficie ncy virus [HIV] counselingOther sex counselingEncounter for oth general cnsl and advice on contraceptionEncntr for pie filler exam (general) (routine) w abnormal findingsEncounter for surveillance of injectable contraceptiveEncntr screen for infections w sexl mode of transmissHigh risk heterosexual behaviorBody mass index (BMI) 30.0-30.9, adult Daryn Amos. [address], [place], [id number], [place]. tel:[phone] Referring Provider: Bette Stearns, [address] [place] [address], [id number]. tel:[phone] [facility], [address] [place] [address], [id number], [place] tel:[phone] [facility] Encounter for pregn catarina test, result negativeEncounter for surveillance of injectable contraceptive Daryn Amos. [address] [place] [address], [id number], [place]. tel:[phone] Referring Provider: Bette Stearns, [address], [place], [id number]. tel:[phone] [facility], [address], [place], [id number], [place] tel:[phone] [facility] Encounter for pregn catarina test, result negativeHuman immunodeficiency virus [HIV] counselingOther sex counselingEncounter for oth general cnsl and advice on contraceptionEncounter for initial prescription of injectable contracep Home Anthony. [address] [place] [address], [id number], [place]. tel:[phone] Referring Provider: Gabrielle Levi, [address] [place] [address], [id number]. tel:[phone] Family History Family Member Diagnosis Age At Onset Mother Mental illness 1st degree relative No hx of venous thromboembolism Father IBS 1st degree relative No hx of osteoporosis Father Mental illness 1st degree relative No hx of cancer of breast, colon, endome trium or ovary Father COPD Father Diabetes mellitus 1st degree relative No hx of coronary heart disease (female <65, male <55) Immunizations Vaccine Date Status Comments No Information Payers Payer name Insurance type Covered constitution party ID Authorization(s ) [facility] CI [id number] Social History Type Description Quantity Date Captured Comments Alcohol Use Details Unknown Caffeine Use Details Unknown Tobacco Use Status Occasional cigarette smoker 2020 Smoking Status Light tobacco smoker Smoking Tobacco Use Details Cigarette: No Details Available Cigarette: 2 Cigarettes per day Sex Female Vital Signs Date / Time: Height Weight BMI Pulse Rate Blood Pressure Temperatu re Respiratory Rate Body Surface Area Head Circumference BMI percentile Pulse Ox In haled Ox 10:07 AM 62.00 in 172.20 lbs 31.50 kg/meter(2) 128/8 0 mm[Hg] Chief Complaint And Reason For Visit Most recent encounter only, dated '07/10/2021 09:15'. Control (chief complaint) Depo (chief complaint) Reason For Referral Reason For Referral No Information Plan Of Treatment Date Type Action Status Goal Tobacco cessation counseling com pleted Goal Tobacco cessation counseling com pleted Goal Tobacco cessation counseling com pleted Goal Tobacco cessation counseling com pleted Goal Tobacco cessation counseling com pleted Goal Tobacco cessation counseling com pleted Goal Tobacco cessation counseling com pleted Goal Dietary management education, gu idance, and counseling completed Goal Tobacco cessation counseling com pleted Goal Tobacco cessation counseling com pleted Appointment [facility] BOOKED Appointment [facility] wood[facility] BOOKED History Of Present Illness Encounter Date Complaint History Of Present I llness No Information Functional Status Date Functional Assessment No Information Medications Administered Medication Instructions Dosage Effective Dates (start - stop) Sta tus Comments No Information Instructions Date Instruction Additional Informati on Dietary management education, guidance, and counseling Related to Body mass index (BMI) 30.0-30.9, adult Assessments Type Assessment Date assessment Encounter for surveillance of injectable contraceptive assessment Encounter for test, result neg ative assessment Encounter for oth general cnsl and advic e on contraception assessment Encounter for initial prescription of in jectable contracep assessment Human immunodeficiency virus [HIV] couns eling assessment Other sex counseling Goals Health Concern Goal Type Priority Status Date No Information Medical Equipment Description Device [place] Device Identifier Effective Danial es (start - stop) Status No Information Mental Status Date Cognitive Assessment Orientation - Oriented to ti me, place, person, situation.Normal Orientation Health Concerns Observation Date No Information Concern Status Date No Information Physical Examination Exam Findings Details Neurological Normal Level of consciousne ss - Normal. Orientation - Normal. Psychiatric Normal Orientation - [place] ed to time, place, person & situation.
--- OUTSIDE RECORDS SUMMARY | 2021-09-19 13:26 | CCD ---
Author Author [facility] Address Unknown Phone Unavailable Care Team Providers Care Internal Grinder Name Role Phone Chiquis Toney CLOCKMAKER APPRENTICE Unavailable Unavailable Stearns, Shirin Bette CLOCKMAKER APPRENTICE Unavailable Unavailable Stearns, Shirin Bette CLOCKMAKER APPRENTICE Unavailable Unavailable Stearns, Shirin Bette CLOCKMAKER APPRENTICE Unavailable Unavailable Stearns, Shirin Bette CLOCKMAKER APPRENTICE Unavailable Unavailable Stearns, Shirin Bette CLOCKMAKER APPRENTICE Unavailable Unavailable Stearns, Shirin Bette CLOCKMAKER APPRENTICE Unavailable Unavailable Stearns, Shirin Bette CLOCKMAKER APPRENTICE Unavailable Unavailable Stearns, Shirin Bette CLOCKMAKER APPRENTICE Unavailable Unavailable Stearns, Shirin Bette CLOCKMAKER APPRENTICE Unavailable Unavailable Stearns, Shirin Bette CLOCKMAKER APPRENTICE Unavailable Unavailable Stearns, Shirin Bette CLOCKMAKER APPRENTICE Unavailable Unavailable Stearns, Shirin Bette CLOCKMAKER APPRENTICE Unavailable Unavailable Stearns, Shirin Bette CLOCKMAKER APPRENTICE Unavailable Unavailable Stearns, Shirin [place] CLOCKMAKER APPRENTICE Unavailable Unavailable REINDL, ANDREW PADILLA Unavailable Unavailable REINDL, ANDREW PADILLA Unavailable Unavailable REINDL, ANDREW PADILLA Unavailable Unavailable REINDL, ANDREW PADILLA Unavailable Unavailable REINDL, ANDREW PADILLA Unavailable Unavailable REINDL, ANDREW PADILLA Unavailable Unavailable REINDL, ANDREW PADILLA Unavailable Unavailable REINDL, ANDREW PADILLA Unavailable Unavailable REINDL, ANDREW PADILLA Unavailable Unavailable REINDL, ANDREW PADILLA Unavailable Unavailable REINDL, ANDREW PADILLA Unavailable Unavailable REINDL, ANDREW PADILLA Unavailable Unavailable REINDL, ANDREW PADILLA Unavailable Unavailable REINDL, ANDREW PADILLA Unavailable Unavailable REINDL, ANDREW PADILLA Unavailable Unavailable REINDL, ANDREW PADILLA Unavailable Unavailable REINDL, ANDREW PADILLA Unavailable Unavailable REINDL, ANDREW PADILLA Unavailable Unavailable REINDL, ANDREW PADILLA Unavailable Unavailable REINDL, ANDREW PADILLA Unavailable Unavailable REINDL, ANDREW PADILLA Unavailable Unavailable REINDL, ANDREW PADILLA Unavailable Unavailable REINDL, ANDREW PADILLA Unavailable Unavailable REINDL, ANDREW PADILLA Unavailable Unavailable REINDL, ANDREW PADILLA Unavailable Unavailable REINDL, ANDREW PADILLA Unavailable Unavailable REINDL, ANDREW PADILLA Unavailable Unavailable REINDL, ANDREW PADILLA Unavailable Unavailable REINDL, ANDREW PADILLA Unavailable Unavailable REINDL, ANDREW PADILLA Unavailable Unavailable REINDL, ANDREW PADILLA Unavailable Unavailable REINDL, ANDREW PADILLA Unavailable Unavailable REINDL, ANDREW PADILLA Unavailable Unavailable REINDL, ANDREW PADILLA Unavailable Unavailable REINDL, ANDREW PADILLA Unavailable Unavailable REINDL, ANDREW PADILLA Unavailable Unavailable REINDL, ANDREW PADILLA Unavailable Unavailable REINDL, ANDREW PADILLA Unavailable Unavailable REINDL, ANDREW PADILLA Unavailable Unavailable REINDL, ANDREW PADILLA Unavailable Unavailable REINDL, ANDREW PADILLA Unavailable Unavailable REINDL, ANDREW PADILLA Unavailable Unavailable Priscilla, Lupe Unavailable Unavailable Priscilla, Lupe Unavailable Unavailable Priscilla, Lupe Unavailable Unavailable Priscilla, Lupe Unavailable Unavailable Priscilla, Lupe Unavailable Unavailable Priscilla, Lupe Unavailable Unavailable Priscilla, Lupe Unavailable Unavailable Priscilla, Lupe Unavailable Unavailable Priscilla, Lupe Unavailable Unavailable Priscilla, Lupe Unavailable Unavailable Priscilla, Lupe Unavailable Unavailable Priscilla, Lupe Unavailable Unavailable Priscilla, Lupe Unavailable Unavailable Priscilla, Lupe Unavailable Unavailable Priscilla, Lupe Unavailable Unavailable Priscilla, Lupe Unavailable Unavailable Priscilla, Lupe Unavailable Unavailable Priscilla, Lupe Unavailable Unavailable Priscilla, Lupe Unavailable Unavailable Priscilla, Lupe Unavailable Unavailable Priscilla, Lupe Unavailable Unavailable Priscilla, Lupe Unavailable Unavailable Priscilla, Lupe Unavailable Unavailable Priscilla, Lupe Unavailable Unavailable Priscilla, Lupe Unavailable Unavailable Priscilla, Lupe Unavailable Unavailable Green BOMB SQUAD OFFICER BOMB SQUAD OFFICER, Charleen Unavailable Unavailable Green BOMB SQUAD OFFICER BOMB SQUAD OFFICER, Charleen Unavailable Unavailable Green BOMB SQUAD OFFICER BOMB SQUAD OFFICER, Charleen Unavailable Unavailable Green BOMB SQUAD OFFICER BOMB SQUAD OFFICER, Charleen Unavailable Unavailable Green BOMB SQUAD OFFICER BOMB SQUAD OFFICER, Charleen Unavailable Unavailable PRYBYLOWSKI, E LES PA Unavailable Unavailable PRYBYLOWSKI, E LES PA Unavailable Unavailable PRYBYLOWSKI, E LES PA Unavailable Unavailable PRYBYLOWSKI, E LES PA Unavailable Unavailable PRYBYLOWSKI, E LES PA Unavailable Unavailable PRYBYLOWSKI, E LES PA Unavailable Unavailable PRYBYLOWSKI, E LES PA Unavailable Unavailable PRYBYLOWSKI, E LES PA Unavailable Unavailable PRYBYLOWSKI, E LES PA Unavailable Unavailable PRYBYLOWSKI, E LES PA Unavailable Unavailable PRYBYLOWSKI, E LES PA Unavailable Unavailable PRYBYLOWSKI, E LES PA Unavailable Unavailable PRYBYLOWSKI, E LES PA Unavailable Unavailable PRYBYLOWSKI, E LES PA Unavailable Unavailable PRYBYLOWSKI, E LES PA Unavailable Unavailable PRYBYLOWSKI, E LES PA Unavailable Unavailable PRYBYLOWSKI, E LES PA Unavailable Unavailable Onofre Thompson MD Unavailable Unavailable Jay A Velia MD Unavailable Unavailable Jay A Velia PADILLA Unavailable Unavailable Jay A Velia MD Unavailable Unavailable Jay A Velia MD Unavailable Unavailable Jay A Velia MD Unavailable Unavailable Jay A Velia MD Unavailable Unavailable Jya A Velia MD Unavailable Unavailable Jay A Velia MD Unavailable Unavailable Jay A Velia MD Unavailable Unavailable Jya A Velia MD Unavailable Unavailable Jay A Velia MD Unavailable Unavailable Jay A Velia PADILLA Unavailable Unavailable Jay A Velia PADILLA Unavailable Unavailable Jay A Velia MD Unavailable Unavailable Jay A Velia PADILLA Unavailable Unavailable Jay A Velia PADILLA Unavailable Unavailable Jay A Velia MD Unavailable Unavailable Jay A Velia MD Unavailable Unavailable Jay A Velia MD Unavailable Unavailable Jay A Velia MD Unavailable Unavailable Jay A Velia MD Unavailable Unavailable Jay A Velia MD Unavailable Unavailable Jay A Velia MD Unavailable Unavailable Jay A Velia MD Unavailable Unavailable Jay A Velia MD Unavailable Unavailable Jay A Velia MD Unavailable Unavailable Jay A Velia MD Unavailable Unavailable Jay A Velia MD Unavailable Unavailable Jay A Velia MD Unavailable Unavailable Jay A Velia MD Unavailable Unavailable Jay A Velia MD Unavailable Unavailable Jay A Velia MD Unavailable Unavailable Jay A Velia MD Unavailable Unavailable Jay, Onofre Gunn MD Unavailable Unavailable Jay, Onofre Gunn MD Unavailable Unavailable Jay, Onofre Gunn MD Unavailable Unavailable Jay, Onofre Gunn MD Unavailable Unavailable Jay, Onofre Gunn MD Unavailable Unavailable Jay, Onofre Gunn MD Unavailable Unavailable Jay, Onofre Gunn MD Unavailable Unavailable Jay, Onofre Gunn MD Unavailable Unavailable Jay, Onofre Gunn MD Unavailable Unavailable Jay, Onofre Gunn MD Unavailable Unavailable Jay, Onofre Gunn MD Unavailable Unavailable Jay, Onofre Gunn MD Unavailable Unavailable Jay, A Velia PADILLA Unavailable Unavailable Jay, Onofre Gunn MD Unavailable Unavailable Jay, Onofre Gunn MD Unavailable Unavailable Jay, Onofre Gunn MD Unavailable Unavailable Jay, A Velia PADILLA Unavailable Unavailable Jay, A Velia PADILLA Unavailable Unavailable Jay, A Velia PADILLA Unavailable Unavailable Jay, A Velia PADILLA Unavailable Unavailable Jay, A Velia PADILLA Unavailable Unavailable Jay, A Velia PADILLA Unavailable Unavailable Jay, A Velia PADILLA Unavailable Unavailable Jay, Onofre Gunn MD Unavailable Unavailable Jay, A Velia PADILLA Unavailable Unavailable Jay, A Velia PADILLA Unavailable Unavailable Jay, A Velia PADILLA Unavailable Unavailable Jay, A Velia PADILLA Unavailable Unavailable Jay, A Velia PADILLA Unavailable Unavailable Jay, Onofre Gunn MD Unavailable Unavailable Jay, Onofre Gunn MD Unavailable Unavailable Jay, Onofre Gunn MD Unavailable Unavailable Jay, A Velia PADILLA Unavailable Unavailable Jay, A Velia PADILLA Unavailable Unavailable Jay, A Velia PADILLA Unavailable Unavailable Jay, A Velia PADILLA Unavailable Unavailable Jay, Onofre Gunn MD Unavailable Unavailable Jay, Onofre Gunn MD Unavailable Unavailable Jay, Onofre Gunn MD Unavailable Unavailable Jay, Onofre Gunn MD Unavailable Unavailable Jay, Onofre Gunn MD Unavailable Unavailable Jay, Onofre Gunn MD Unavailable Unavailable Jay, Onofre Gunn MD Unavailable Unavailable Jay, Onofre Gunn MD Unavailable Unavailable Jay, Onofre Gunn MD Unavailable Unavailable Jay, Onofre Gunn MD Unavailable Unavailable Jay, Onofre Gunn MD Unavailable Unavailable Jay, Onofre Gunn MD Unavailable Unavailable Dwello PA PA, Mindy Unavailable Unavailable Dwello PA PA, Mindy Unavailable Unavailable Dwello PA PA, Mindy Unavailable Unavailable Dwello PA PA, Mindy Unavailable Unavailable Dwello PA PA, Mindy Unavailable Unavailable Dwello PA PA, Mindy Unavailable Unavailable Dwello PA PA, Mindy Unavailable Unavailable Moraga-Saleh, Shira CNM Unavailable Unavailab le Moraga-Saleh, Shira CNM Unavailable Unavailab le Moraga-Saleh, Shira CNM Unavailable Unavailab le Obed-Saleh, Shira CNM Unavailable Unavailab le Moraga-Saleh, Shira CNM Unavailable Unavailab le Obed-Saleh, Shira CNM Unavailable Unavailab le Toney, F Chiquis CLOCKMAKER APPRENTICE-BC Unavailable Unavailable Toney, F Chiquis CLOCKMAKER APPRENTICE-BC Unavailable Unavailable Toney, F Chiquis CLOCKMAKER APPRENTICE-BC Unavailable Unavailable Toney, F Chiquis CLOCKMAKER APPRENTICE-BC Unavailable Unavailable Toney, F Chiquis CLOCKMAKER APPRENTICE-BC Unavailable Unavailable Toney, F Chiquis CLOCKMAKER APPRENTICE-BC Unavailable Unavailable Toney, F Chiquis CLOCKMAKER APPRENTICE-BC Unavailable Unavailable Toney, F Chiquis CLOCKMAKER APPRENTICE-BC Unavailable Unavailable Toney, F Chiquis CLOCKMAKER APPRENTICE-BC Unavailable Unavailable Toney, F Chiquis CLOCKMAKER APPRENTICE-BC Unavailable Unavailable Toney, F Chiquis CLOCKMAKER APPRENTICE-BC Unavailable Unavailable Toney, F Chiquis CLOCKMAKER APPRENTICE-BC Unavailable Unavailable Toney, F Chiquis CLOCKMAKER APPRENTICE-BC Unavailable Unavailable Toney, F Chiquis CLOCKMAKER APPRENTICE-BC Unavailable Unavailable Toney, F Chiquis CLOCKMAKER APPRENTICE-BC Unavailable Unavailable Toney, F Chiquis CLOCKMAKER APPRENTICE-BC Unavailable Unavailable Toney, F Chiquis CLOCKMAKER APPRENTICE-BC Unavailable Unavailable Toney, F Chiquis CLOCKMAKER APPRENTICE-BC Unavailable Unavailable Toney, F Chiquis CLOCKMAKER APPRENTICE-BC Unavailable Unavailable Toney, F Chiquis CLOCKMAKER APPRENTICE-BC Unavailable Unavailable Toney, F Chiquis CLOCKMAKER APPRENTICE-BC Unavailable Unavailable Toney, F Chiquis CLOCKMAKER APPRENTICE-BC Unavailable Unavailable Toney, F Chiquis CLOCKMAKER APPRENTICE-BC Unavailable Unavailable Re-disclosure Warning The records that you are about to access may contain information from federally-assisted alcohol or drug abuse programs. If such information is present, then the following federally mandated warning applies: This information has been disclosed to you from records protected by federal confidentiality rules (42 CFR part 2). The federal rules prohibit you from making any further disclosure of this information unless further disclosure is expressly permitted by the written consent of the person to whom it pertains or as otherwise permitted by 42 CFR part 2. A general authorization for the release of medical or other information is NOT sufficient for this purpose. The Federal rules restrict any use of the information to criminally investigate or prosecute any alcohol or drug abuse patient.The records that you are about to access may contain highly sensitive health information, the redisclosure of which is protected by Article 27-F of the [place] State Public Health law. If you continue you may have access to information: Regarding HIV / AIDS; Provided by facilities licensed or operated by the [facility] Office of Mental Health; or Provided by the [facility] Office for People With Developmental Disabilities. If such information is present, then the following [facility] mandated warning applies: This information has been disclosed to you from confidential records which are protected by state law. State law prohibits you from making any further disclosure of this information without the specific written consent of the person to whom it pertains, or as otherwise permitted by law. Any unauthorized further disclosure in violation of state law may result in a fine or care home sentence or both. A general authorization for the release of medical or other information is NOT sufficient authorization for further disc losure. Family History Family Member Name Family Member Gender Family Member Status Date o f Status Description Data Source(s) Unknown Female Diagnosis 02/15/2020 12:00:00 AM EDT [facility] ([facility]) Unknown Unknown Problem [facility] ([facility], ) Encounters Encounter Providers Location Date Indications Data Source(s ) OFFICE VISIT, ESTOutpatient Attender: Charleen Perez 07/10/2021 09:15:00 AM EDT - 07/10/2021 09:15:00 AM EDT Other sex counselingHuman immunodeficiency virus [HIV] counselingEncounter for initial prescription of injectable contracepEncounter for oth general cnsl and advice on contraceptionEncounter for test, result negativeEncounter for surveillance of injectable contraceptive [facility] ([facility]) Other sex counseling Human immunodeficiency virus [HIV] couns eling Encounter for initial prescription of in jectable contracep Encounter for oth general cnsl and advic e on contraception Encounter for test, result neg ative Encounter for surveillance of injectable contraceptive Jil Wells MD: [address] [place] [phone], Ph. Attender: Jil Wells [place] - [facility] 06/27/2021 12:00:00 AM EDT [facility] ([facility]) OFFICE VISIT, ESTOutpatient Attender: Charleen Perez 05/22/2021 09:00:00 AM EDT - 05/22/2021 09:00:00 AM EDT Other specified noninflammatory disorders of vaginaAcute vaginitisOther sex counselingEncounter for surveillance of injectable contraceptiveEncounter for oth general cnsl and advice on contraception [facility] ([facility]) Other specified noninflammatory disorder s of vagina Acute vaginitis Other sex counseling Encounter for surveillance of injectable contraceptive Encounter for oth general cnsl and advic e on contraception Attender: LES Aceves 05/19/2021 12:47:00 PM EDT - 05/19/2021 12:47:00 PM EDT [facility] ([facility]) Attender: Velia Aceves 0 05/18/2021 04:41:00 PM EDT - 05/18/2021 04:41:00 PM EDT [facility] ([facility]) Attender: Charleen Aceves 05/01/2021 11:58:00 AM EDT - 05/01/2021 11:58:00 AM EDT [facility] ([facility]) Attender: Velia Perez 01/2021 11:45:00 AM EDT - 04/27/2021 11:45:00 AM EDT [facility] ([facility]) Attender: Charleen Perez 0 04/26/2021 09:14:00 AM EDT - 04/26/2021 09:14:00 AM EDT Acute vaginitis [facility] ([facility]) Acute vaginitis Attender: Velia Aceves 0 04/25/2021 02:10:00 PM EDT - 04/25/2021 02:10:00 PM EDT [facility] ([facility]) OFFICE VISIT, ESTOutpatient Attender: Charleen Perez 04/21/2021 10:15:00 AM EDT - 04/21/2021 10:15:00 AM EDT Encntr screen for infections w sexl mode of transmissNausea with vomiting, unspecifiedOther sex counselingHuman immunodeficiency virus [HIV] counselingEncounter for surveillance of injectable contraceptiveEncounter for oth general cnsl and advice on contraceptionAbnormal uterine and vaginal bleeding, unspecifiedPelvic and perineal painEncounter for test, result negative [facility] ([facility]) Encntr screen for infections w sexl mode of transmiss Nausea with vomiting, unspecified Other sex counseling Human immunodeficiency virus [HIV] couns eling Encounter for surveillance of injectable contraceptive Encounter for oth general cnsl and advic e on contraception Abnormal uterine and vaginal bleeding, u nspecified Pelvic and perineal pain Encounter for test, result neg ative OFFICE VISIT, ESTOutpatient Attender: LES Servin 04/20/2021 09:30:00 AM EDT - 04/20/2021 09:30:00 AM EDT Abnormal uterine and vaginal bleeding, unspecifiedPelvic and perineal pain [facility] ([facility]) Abnormal uterine and vaginal bleeding, u nspecified Pelvic and perineal pain Attender: Mindy Perez 10/2021 03:10:00 PM EDT - 03/06/2021 03:10:00 PM EDT Encounter for surveillance of injectable contraceptive [facility] ([facility]) Encounter for surveillance of injectable contraceptive Attender: Mindy Perez 08:29:00 AM EST - 12/15/2020 08:29:00 AM EST Acute vaginitis [facility] ([facility]) Acute vaginitis OutpatientOFFICE VISIT, EST Attender: Mindy [place] 12/13/2020 10:45:00 AM EST - 12/13/2020 10:45:00 AM EST Encounter for surveillance of injectable contraceptivePruritus vulvaeEncounter for oth general cnsl and advice on contraceptionOther sex counselingEncounter for test, result negative [facility] ([facility]) Encounter for surveillance of injectable contraceptive Pruritus vulvae Encounter for oth general cnsl and advic e on contraception Other sex counseling Encounter for test, result neg ative OFFICE VISIT, ESTOutpatient Attender: Shira PETERS [place] 2020 12:35:00 PM EDT - 2020 12:35:00 PM ED T Other specified noninflammatory disorders of vaginaAcute vaginitisEncounter for initial prescription of injectable contracepEncounter for oth general cnsl and advice on contraceptionOther sex counselingEncounter for test, result negative [facility] ([facility]) Other specified noninflammatory disorder s of vagina Acute vaginitis Encounter for initial prescription of in jectable contracep Encounter for oth general cnsl and advic e on contraception Other sex counseling Encounter for test, result neg ative Outpatient Attender: Chiquis ALEJANDRO 09/08/2020 10: 59:[address] [facility] Outpatient Attender: Chiquis ALEJANDRO 09/01/2020 03: 26:[address] [facility] Outpatient Attender: RUTHANN ALEJANDRO 08/25/2020 04:05:[address] [facility] Outpatient Attender: RUTHANN ALEJANDRO 08/24/2020 09:28:[address] [facility] Outpatient Attender: RUTHANN ALEJANDRO 08/24/2020 08:54:[address] [facility] Outpatient Attender: Chiquis ALEJANDRO 08/23/2020 03: 07:[address] [facility] Outpatient Attender: RUTHANN ALEJANDRO 08/23/2020 02:57:[address] [facility] Outpatient Attender: Chiquis ALEJANDRO 08/22/2020 02: 14:[address] [facility] Outpatient Attender: Chiquis ALEJANDRO 08/18/2020 09: 08:02 AM EDT [facility] Attender: Shira stovall 08/15/2020 12:13:00 PM EDT - 08/15/2020 12:13:00 PM EDT [facility] OutpatientPREV VISIT, EST, AGE 18-39 Attender: Bette Mackenzie cornelius Perez 08/08/2020 10:00:00 AM EDT - 08/08/2020 10:00:00 AM ED T Body mass index (BMI) 30.0-30.9, adultHigh risk heterosexual behaviorEncntr screen for infections w sexl mode of transmissEncounter for surveillance of injectable contraceptiveEncntr for directional driller exam (general) (routine) w abnormal findings Encounter for oth general cnsl and advice on contraceptionOther sex counselingHuman immunodeficiency virus [HIV] counseling [facility] ([facility]) Body mass index (BMI) 30.0-30.9, adult High risk heterosexual behavior Encntr screen for infections w sexl mode of transmiss Encounter for surveillance of injectable contraceptive Encntr for directional driller exam (general) (routine) w abnormal findings Encounter for oth general cnsl and advic e on contraception Other sex counseling Human immunodeficiency virus [HIV] couns [facility] Outpatient Attender: ANDREW Michele/Anurag/Edgardo/Akhil pichardo 08/04/2020 01:45:00 PM EDT [facility] ([facility], ) Medications Medication Brand Name Start Date Product Form Dose Route Admi nistrative Instructions Pharmacy Instructions Status Indications Reaction Description Data Source(s) 10 mg 08/28/2021 12:00:00 AM EDT capsule 30 TAKE ONE CAPSULE BY MOUTH EVERY MORNING TAKE ONE CAPSULE BY MOUTH EVERY MORNING SOLD: 09/07/2021 [facility] Clonidine Hydrochloride 0.1 MG Oral Tablet CLONIDINE HCL 08/17/2021 12:00:00 AM EDT tablet 100 TAKE 1-2 TABLETS BY MOUTH TW O TIMES A DAY NEEDED TAKE 1-2 TABLETS BY MOUTH TWO TIMES A DAY NEEDED SOLD: 08/17/2021 [facility] 0.3 mg 08/17/2021 12:00:00 AM EDT tablet 30 TAKE ONE TABLET BY MOUTH AT BEDTIME TAKE ONE TABLET BY MOUTH AT BEDTIME SOLD: 08/17/2021 [facility] medroxyprogesterone acetate 150 MG/ML In jectable Suspension medroxyprogesterone 150 mg/mL intramuscular suspension medroxyprogesterone 150 mg/mL intramuscu lar suspension 07/10/2021 12:00:00 AM EDT active IM every 10-13 weeks [facility] ([facility]) 10 mg 06/28/2021 12:00:00 AM EDT tablet 30 TAKE ONE TABLET BY MOUTH ONCE DAILY TAKE ONE TABLET BY MOUTH ONCE DAILY SOLD: 06/29/2021 [facility] 8 mg 06/28/2021 12:00:00 AM EDT tablet,disintegrating 3 0 DISSOLVE ONE TABLET ON THE TONGUE EVERY 8 HOURS NEEDED DISSOLVE ONE TABLET ON THE TONGUE EVERY 8 HOURS NEEDED SOLD: 06/29/2021 [facility] 90 mg 06/10/2021 12:00:00 AM EDT capsule,delayed release (DR/EC) 4 TAKE ONE CAPSULE BY MOUTH EVERY SATURDAY TAKE ONE CAPSULE BY MOUTH EVERY SATURDAY SOLD: 06/26/2021 [facility] 150 mg 06/08/2021 12:00:00 AM EDT tablet 2 TAKE ONE TABLET BY MOUTH EVERY WEEK TAKE ONE TABLET BY MOUTH EVERY WEEK SOLD: 06/26/2021 [facility] 0.3 mg 06/08/2021 12:00:00 AM EDT tablet 30 TAKE ONE TABLET BY MOUTH AT BEDTIME TAKE ONE TABLET BY MOUTH AT BEDTIME SOLD: 06/26/2021 [facility] Clonidine Hydrochloride 0.1 MG Oral Tablet CLONIDINE HCL 06/08/2021 12:00:00 AM EDT tablet 100 TAKE 1-2 TABLETS BY MOUTH TW O TIMES A DAY NEEDED TAKE 1-2 TABLETS BY MOUTH TWO TIMES A DAY NEEDED SOLD: 06/26/2021 [facility] 150 mg 06/05/2021 12:00:00 AM EDT tablet 2 TAKE ONE TABLET BY MOUTH ONCE PER WEEK TAKE ONE TABLET BY MOUTH ONCE PER WEEK SOLD: 06/06/2021 [facility] 100,000 unit/mL 06/05/2021 12:00:00 AM EDT suspension 200 SWISH AND SWALLOW 5 ML FOUR TIMES A DAY FOR 10 DAYS SWISH AND SWALLOW 5 ML FOUR TIMES A DAY FOR 10 DAYS SOLD: 06/06/2021 [facility] Metronidazole 500 MG Oral Tablet METRONIDAZOLE 05/22/2021 12:0 0:00 AM EDT tablet 14 TAKE ONE TABLET BY MOUTH TWICE A DAY FOR 7 DAYS TAKE ONE TABLET BY MOUTH TWICE A DAY FOR 7 DAYS SOLD: 05/26/2021 [facility] Metronidazole 500 MG Oral Tablet metronidazole 500 mg tablet metronidazole 500 mg tablet 05/22/2021 12:00:00 AM EDT active 1 tab po bid x 7d (#14) [facility] ([facility]) 500 mg 05/13/2021 12:00:00 AM EDT tablet 30 TAKE ONE TABLET BY MOUTH TWICE A DAY WITH FOOD TAKE ONE TABLET BY MOUTH TWICE A DAY WITH FOOD SOLD: 021 [facility] 100,000 unit/mL 05/11/2021 12:00:00 AM EDT suspension 160 TAKE 4ML BY MOUTH 4 TIMES PER DAY FOR 10 DAYS TAKE 4ML BY MOUTH 4 TIMES PER DAY FOR 10 DAYS SOLD: 05/12/2021 [facility] 150 mg 05/11/2021 12:00:00 AM EDT tablet 2 TAKE ONE TABLET BY MOUTH ONCE ON DAY 1, THEN TAKE SECOND TABLET IN 48 HOURS TAKE ONE TABLET BY MOUTH ONCE ON DAY 1, THEN TAKE SECOND TABLET IN 48 HOURS SOLD: 05/12/2021 [facility] Clonidine Hydrochloride 0.1 MG Oral Tablet CLONIDINE HCL 05/10/2021 12:00:00 AM EDT tablet 120 TAKE 1-2 TABLETS BY MOUTH TW O TIMES A DAY NEEDED TAKE 1-2 TABLETS BY MOUTH TWO TIMES A DAY NEEDED SOLD: 05/12/2021 [facility] 90 mg 05/10/2021 12:00:00 AM EDT capsule,delayed release (DR/EC) 5 TAKE ONE CAPSULE BY MOUTH EVERY SATURDAY TAKE ONE CAPSULE BY MOUTH EVERY SATURDAY SOLD: 05/12/2021 [facility] 0.75 % 04/27/2021 12:00:00 AM EDT gel 70 INSERT ONE APPLICATORFUL VAGINALLY EVERY DAY AT BEDTIME FOR 5 DAYS INSERT ONE APPLICATORFUL VAGINALLY EVERY DAY AT BEDTIME FOR 5 DAYS SOLD: 05/02/2021 [facility] Metronidazole 0.0075 MG/MG Vaginal Gel [MetroGel] Metr ogel Vaginal 0.75 % Metrogel Vaginal 0.75 % 04/27/2021 12:00:00 AM EDT completed metronidazole 0.0075 MG/MG Vaginal Gel [MetroGel] [facility] ([facility]) Metronidazole 0.0075 MG/MG Vaginal Gel [MetroGel] Metr ogel Vaginal 0.75 % Metrogel Vaginal 0.75 % 04/26/2021 12:00:00 AM EDT completed metronidazole 0.0075 MG/MG Vaginal Gel [MetroGel] [facility] ([facility]) Ondansetron 4 MG Disintegrating Oral Tab let ondansetron 4 mg disintegrating tablet ondansetron 4 mg disintegrating tablet 04/21/2021 12:00:00 AM EDT active 1 tab sublingual every 6 hours prn nausea [facility] ([facility]) Ondansetron 4 MG Disintegrating Oral Tablet ONDANSETRON 04/21/2021 12:00:00 AM EDT tablet,disintegrating 30 TAKE ONE T ABLET BY MOUTH EVERY 6 HOURS NEEDED FOR NAUSEA TAKE ONE TABLET BY MOUTH EVERY 6 HOURS NEEDED FOR N AUSEA SOLD: 04/21/2021 [facility] Ondansetron 4 MG Disintegrating Oral Tab let ondansetron 4 mg disintegrating tablet ondansetron 4 mg disintegrating tablet 04/21/2021 12:00:00 AM EDT active 1 tab sublingual every 6 hours prn nausea [facility] ([facility]) Ondansetron 4 MG Disintegrating Oral Tablet ONDANSETRON 04/21/2021 12:00:00 AM EDT tablet,disintegrating 30 TAKE ONE T ABLET BY MOUTH EVERY 6 HOURS NEEDED FOR NAUSEA TAKE ONE TABLET BY MOUTH EVERY 6 HOURS NEEDED FOR N AUSEA SOLD: 05/26/2021 [facility] Clonidine Hydrochloride 0.1 MG Oral Tablet CLONIDINE HCL 03/29/2021 12:00:00 AM EDT tablet 90 TAKE ONE TABLET BY MOUTH THR EE TIMES A DAY NEEDED TAKE ONE TABLET BY MOUTH THREE TIMES A DAY NEEDED SOLD: 04/14/2021 [facility] 0.75 % 12/15/2020 12:00:00 AM EST gel 70 INSERT ONE APPLICATORFUL VAGINALLY EVERY DAY AT BEDTIME FOR 5 DAYS INSERT ONE APPLICATORFUL VAGINALLY EVERY DAY AT BEDTIME FOR 5 DAYS SOLD: 12/15/2020 [facility] Metronidazole 0.0075 MG/MG Vaginal Gel [MetroGel] Metr ogel Vaginal 0.75 % Metrogel Vaginal 0.75 % 12/15/2020 12:00:00 AM EST active metronidazole 0.0075 MG/MG Vaginal Gel [MetroGel] [facility] ([facility]) Metronidazole 500 MG Oral Tablet metronidazole 500 mg tablet metronidazole 500 mg tablet 12/15/2020 12:00:00 AM EST active take 1 tablet by oral route every 12 hours x 7 days [facility] ([facility]) Metronidazole 500 MG Oral Tablet METRONIDAZOLE 12/15/2020 12:0 0:00 AM EST tablet 14 TAKE ONE TABLET BY MOUTH EVERY 1 2 HOURS FOR 7 DAYS TAKE ONE TABLET BY MOUTH EVERY 12 HOURS FOR 7 DAYS SOLD: 12/15/2020 [facility] medroxyprogesterone acetate 150 MG/ML In jectable Suspension medroxyprogesterone 150 mg/mL intramuscular suspension medroxyprogesterone 150 mg/mL intramuscu lar suspension 12/13/2020 12:00:00 AM EST active IM every 10-13 weeks [facility] ([facility]) 20 mg 10/25/2020 12:00:00 AM EST tablet 90 TAKE ONE TABLET BY MOUTH EVERY 6 TO 8 HOURS NEEDED FOR ABDOMINAL PAIN/ DIARRHEA/ SPASMS TAKE ONE TABLET BY MOUTH EVERY 6 TO 8 HOURS NEEDED FOR ABDOMINAL PAIN/ DIARRHEA/ SPASMS SOLD: 10/27/2020 [facility] 40 mg 10/25/2020 12:00:00 AM EST capsule,delayed release (DR/EC) 30 TAKE ONE CAPSULE BY MOUTH EVERY DAY TAKE ONE CAPSULE BY MOUTH EVERY DAY SOLD: 10/27/2020 [facility] medroxyprogesterone acetate 150 MG/ML In jectable Suspension medroxyprogesterone 150 mg/mL intramuscular suspension medroxyprogesterone 150 mg/mL intramuscu lar suspension 2020 12:00:00 AM EDT complet ed IM every 10-13 weeks [facility] ([facility]) Levonorgestrel 1.5 MG Oral Tablet [Plan B One-Step] Plan B One-Step 1.5 mg tablet Plan B One-Step 1.5 mg tablet 2020 12:00:00 AM EDT 1.00 {tablet} ORAL active levonorgestrel 1.5 M G Oral Tablet [Plan B One-Step] [facility] ([facility]) 1.5 mg 2020 12:00:00 AM EDT tablet 1 TAKE ONE TABLET BY MOUTH SOON POSSIBLE WITHIN 72 HOURS AFTER UNPROTECTED INTERCOURSE TAKE ONE TABLET BY MOUTH SOON POSSIBLE WITHIN 72 HOURS AFTER UNPROTECTED INTERCOURSE SOLD: 2020 [facility] Metronidazole 500 MG Oral Tablet metronidazole 500 mg tablet metronidazole 500 mg tablet 2020 12:00:00 AM EDT 1 {tablet} ORAL acti ve take 1 tablet by oral route 2 times every day X 7 days [facility] ([facility]) Metronidazole 500 MG Oral Tablet METRONIDAZOLE 2020 12:0 0:00 AM EDT tablet 14 TAKE ONE TABLET BY MOUTH TWICE A DAY FOR 7 DAYS TAKE ONE TABLET BY MOUTH TWICE A DAY FOR 7 DAYS SOLD: 2020 [facility] 10 mg 08/25/2020 12:00:00 AM EDT capsule 30 TAKE 1 CAPSULE BY MOUTH IN THE MORNING TAKE 1 CAPSULE BY MOUTH IN THE MORNING SOLD: 09/01/2020 [facility] 5 mg 08/21/2020 12:00:00 AM EDT tablet 30 TAKE ONE TABLET BY MOUTH THREE TIMES A DAY NEEDED FOR NAUSEA TAKE ONE TABLET BY MOUTH THREE TIMES A D AY NEEDED FOR NAUSEA SOLD: 08/23/2020 [facility] Promethazine Hydrochloride 25 MG Oral Tablet PROMETHAZINE HC L 08/21/2020 12:00:00 AM EDT tablet 12 TAKE ONE TABLET BY MOUTH EVERY 6 HOURS NEEDED FOR NAUSEA TAKE ONE TABLET BY MOUTH EVERY 6 HOURS NEEDED FOR N AUSEA SOLD: 08/23/2020 [facility] 0.025 % 08/17/2020 12:00:00 AM EDT cream 60 APPLY TO AFFECTED AREA(S) TWO TIMES A DAY APPLY TO AFFECTED AREA(S) TWO TIMES A DAY SOLD: 08/23/2020 [facility] 400 mg/5 mL 08/17/2020 12:00:00 AM EDT suspension 355 TAKE 45ML BY MOUTH ONCE ABOUT 1 TO 2 DAYS BEFORE COLONOSCOPY PREP TAKE 45ML BY MOUTH ONCE ABOUT 1 TO 2 DAYS BEFORE COLONOSCOPY PREP SOLD: 08/23/2020 [facility] Dicyclomine Hydrochloride 20 MG Oral Tablet Dicyclomine HCL 08/04/2020 12:00:00 AM EDT ORAL active [facility] ([facility], ) Magnesium Hydroxide 80 MG/ML Oral Suspension Milk Of Magnesi a 08/04/2020 12:00:00 AM EDT ORAL active M [facility] ([facility], ) Suprep Bowel Prep Kit Suprep Bowel Prep Kit 08/04/2020 12:00:00 AM EDT active [facility] ([facility], ) Promethazine Hydrochloride 25 MG Oral Tablet PROMETHAZINE HC L 08/03/2020 12:00:00 AM EDT tablet 12 TAKE ONE TABLET BY MOUTH EVERY 6 HOURS NEEDED FOR NAUSEA TAKE ONE TABLET BY MOUTH EVERY 6 HOURS NEEDED FOR N AUSEA SOLD: 08/04/2020 [facility] 20 mg 08/03/2020 12:00:00 AM EDT tablet 14 TAKE ONE TABLET BY MOUTH TWICE A DAY TAKE ONE TABLET BY MOUTH TWICE A DAY SOLD: 08/04/2020 [facility] 10 mg 07/30/2020 12:00:00 AM EDT capsule 30 TAKE ONE CAPSULE BY MOUTH EVERY MORNING TAKE ONE CAPSULE BY MOUTH EVERY MORNING SOLD: 08/04/2020 [facility] medroxyprogesterone acetate 150 MG/ML In jectable Suspension medroxyprogesterone 150 mg/mL intramuscular suspension medroxyprogesterone 150 mg/mL intramuscu lar suspension 05/23/2020 12:00:00 AM EDT complet ed IM every 10-13 weeks [facility] ([facility]) medroxyprogesterone acetate 150 MG/ML In jectable Suspension medroxyprogesterone 150 mg/mL intramuscular suspension medroxyprogesterone 150 mg/mL intramuscu lar suspension 02/15/2020 12:00:00 AM EDT active IM every 10-13 weeks [facility] ([facility]) Promethazine Hydrochloride 12.5 MG Oral Tablet PROMETHAZINE HCL (unknown strength) PROMETHAZINE HCL (unknown strength) completed [facility] ([facility]) Fluoxetine 10 MG Oral Capsule fluoxetine 10 mg capsule fluox etine 10 mg capsule 1.00 {capsule} ORAL completed take 1 capsule by oral route every day [facility] ([facility]) Omeprazole 10 MG Delayed Release Oral Capsule OMEPRAZO LE (unknown strength) OMEPRAZOLE (unknown strength) completed [facility] ([facility]) Ondansetron 4 MG Oral Tablet [Zofran] Zofran 4 mg tablet Zofran 4 m g tablet completed ondansetron 4 MG Oral Tablet [Zofran] [facility] ([facility]) Haloperidol 5 MG Oral Tablet haloperidol 5 mg tablet haloperidol 5 mg tablet completed [facility] ([facility]) Insurance Providers Payer name Policy type / Coverage type Policy ID Covered republican ID Covered republican's relationship to nesbitt Policy Nesbitt Plan Information [facility] [id number] SP [id number] Medicaid S [id number] S [id number] Managed Care - [facility] P [id number] S [id number] Medicaid S [id number] S [id number] Managed Care - [facility] P [id number] S [id number] Medicaid S [id number] S [id number] Managed Care - [facility] Community Plan P [id number] S [id number] MEDICAID M [id number] S [id number] SELF PAY ONLY [id number] SP [id number] Medicaid P [id number] S [id number] SELF PAY ONLY [id number] SP [id number] MEDICAID [id number] SP [id number] SELF PAY ONLY [id number] SP [id number] [facility] Health Maintenance Organization (HMO) [id number] Self [id number] MEDICAID [id number] SP [id number] [facility] COMM[facility] [id number] SP [id number] [facility](MCAID) O [id number] S [id number] SELF PAY UNAVAILABLE SP UNAVAILA BLE [facility] COMM[facility] [id number] SP [id number] [facility] COMM[facility] [id number] SP [id number] [facility](MCAID) O [id number] S [id number] [facility] COMMUNITY PLAN XIX [id number] 18 [id number] [facility] COMM[facility] [id number] SP [id number] MEDICAID [id number] SP [id number] Medicaid Dental O [id number] S [id number] Problems, Conditions, and Diagnoses Code Display Name Description Problem Type Effective Dates Data Source(s) 336602499 Steatohepatitis Steatohepatitis Problem 06/26/2021 12:0 0:00 AM EDT [facility] ([facility]) [id number] Internal hemorrhoids Internal Hemorrhoids Problem 06/26/2021 12:00:00 AM EDT [facility] ([facility]) 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, in remission Cannabis abuse, in remiss ion 08/24/2020 09:27:[address] [facility] [id number] Nondependent cannabis abuse in remission Nondependent Cannabis Abuse in Remission Problem 08/07/2020 12:00:00 AM EDT [facility] ([facility]) [id number] Essential hypertension Essential hypertension Problem 08/04/2020 12:00:00 AM EDT CARLEY ([facility], ) [id number] Clinical finding Clinical Finding Problem 020 12:00:00 AM EDT - 06/26/2021 12:00:00 AM EDT [facility]RE[facility] ([facility]) [id number] Nausea and vomiting Nausea and Vomiting Problem 0 06/29/2020 12:00:00 AM EDT - 06/26/2021 12:00:00 AM EDT [facility] ([facility]) [id number] Nausea Nausea Problem 01/13/2019 12:0 0:00 AM EST - 06/26/2021 12:00:00 AM EDT [facility] ([facility]) [id number] Dental caries on smooth surface penetrat ing into pulp Dental Caries on Smooth Surface Penetrating into Pulp Problem 018 12:00:00 AM EDT - 06/26/2021 12:00:00 AM EDT [facility] ([facility]) [id number] Eruption Eruption Problem 03/19/2018 12:0 0:00 AM EDT - 06/26/2021 12:00:00 AM EDT [facility] ([facility]) [id number] Procedure by method Procedure by Method Problem 1 01/08/2017 12:00:00 AM EST - 06/26/2021 12:00:00 AM EDT [facility] ([facility]) [id number] Glycosuria Glycosuria Problem 11/07/2017 12:0 0:00 AM EST - 06/26/2021 12:00:00 AM EDT [facility] ([facility]) Surgeries/Procedures Procedure Description Date Indications Data Source(s) 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 Contraceptive 07/10/2021 12 :00:00 AM EDT - 07/10/2021 12:00:00 AM EDT [facility] ([facility]) CVR Med.Svc. Height/Weight 07/10/2021 12 :00:00 AM EDT - 07/10/2021 12:00:00 AM EDT [facility] ([facility]) CVR Blood Pressure 07/10/2021 12:00:00 AM EDT - 2020 12:00:00 AM EDT [facility] ([facility]) HCS Without Test 07/10/2021 12:00:00 AM EDT - 07/10/20 21 12:00:00 AM EDT [facility] ([facility]) THER/PROPH/DIAG INJ, SC/IM 07/10/2021 12 :00:00 AM EDT - 07/10/2021 12:00:00 AM EDT [facility] ([facility]) Depo/Medroxyprogesterone Inj. 150 Mg Nurse/CA 07/10/2021 12:00:00 AM EDT - 07/10/2021 12:00:00 AM EDT [facility] ([facility]) OFFICE VISIT, EST 07/10/2021 12:00:00 AM EDT - 2 021 12:00:00 AM EDT [facility] ([facility]) URINE TEST 07/10/2021 12:00:00 AM EDT - 07/10/2021 12:00:00 AM EDT [facility] ([facility]) CT, head, w/o contrast 06/27/2021 12:00:00 AM EDT [facility] ([facility]) 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 STI / H 05/22/2021 12:00:00 AM EDT - 05/22/2021 12:00:00 AM EDT [facility] ([facility]) 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 Contraceptive 05/22/2021 12 :00:00 AM EDT - 05/22/2021 12:00:00 AM EDT [facility] ([facility]) CVR Med.Svc. Height/Weight 05/22/2021 12 :00:00 AM EDT - 05/22/2021 12:00:00 AM EDT [facility] ([facility]) CVR Blood Pressure 05/22/2021 12:00:00 AM EDT - 2020 12:00:00 AM EDT [facility] ([facility]) OFFICE VISIT, EST 05/22/2021 12:00:00 AM EDT - 021 12:00:00 AM EDT [facility] ([facility]) NGHN Default 04/21/2021 12:00:00 AM EDT - 04/21/2021 1 2:00:00 AM EDT [facility] ([facility]) 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 STI / H 04/21/2021 12:00:00 AM EDT - 04/21/2021 12:00:00 AM EDT [facility] ([facility]) 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 Contraceptive 04/21/2021 12 :00:00 AM EDT - 04/21/2021 12:00:00 AM EDT [facility] ([facility]) CVR Med.Svc. Height/Weight 04/21/2021 12 :00:00 AM EDT - 04/21/2021 12:00:00 AM EDT [facility] ([facility]) CVR Blood Pressure 04/21/2021 12:00:00 AM EDT - 2020 12:00:00 AM EDT [facility] ([facility]) HCS Without Test 04/21/2021 12:00:00 AM EDT - 04/21/20 21 12:00:00 AM EDT [facility] ([facility]) TRICHOMONAS VAGIN, DIR PROBE 04/21/2021 12:00:00 AM EDT - 04/21/2021 12:00:00 AM EDT [facility] ([facility]) ORNELAS VAG, DNA, DIR PROBE 04/21/2021 1 2:00:00 AM EDT - 04/21/2021 12:00:00 AM EDT [facility] ([facility]) LAMAR, DNA, DIR PROBE 04/21/2021 12:00 :00 AM EDT - 04/21/2021 12:00:00 AM EDT [facility] ([facility]) OFFICE VISIT, EST 04/21/2021 12:00:00 AM EDT - 021 12:00:00 AM EDT [facility] ([facility]) URINE TEST 04/21/2021 12:00:00 AM EDT - 04/21/2021 12:00:00 AM EDT [facility] ([facility]) OFFICE VISIT, EST 04/20/2021 12:00:00 AM EDT - 021 12:00:00 AM EDT [facility] ([facility]) 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 STI / H 03/06/2021 12:00:00 AM EDT - 03/06/2021 12:00:00 AM EDT [facility] ([facility]) 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 Nutrition 03/06/2021 12:00: 00 AM EDT - 03/06/2021 12:00:00 AM EDT [facility] ([facility]) 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 Contraceptive 03/06/2021 12 :00:00 AM EDT - 03/06/2021 12:00:00 AM EDT [facility] ([facility]) CVR Med.Svc. 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 150 Mg Nurse/CA 03/06/2021 12:00:00 AM EDT - 03/06/2021 12:00:00 AM EDT [facility] ([facility]) CVR BC Ending Method HORM.INJ. 3 MOS 10/2021 12:00:00 AM EDT - 03/06/2021 12:00:00 AM EDT [facility] ([facility]) Injection Or Lab Only Visit Est 03/06/20 21 12:00:00 AM EDT - 03/06/2021 12:00:00 AM EDT [facility] ([facility]) 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 Other 12/13/2020 12:00:00 AM EST - 2020 12:00:00 AM EST [facility] ([facility]) 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 Contraceptive 12/13/2020 12 :00:00 AM EST - 12/13/2020 12:00:00 AM EST [facility] ([facility]) CVR Med.Svc. Height/Weight 12/13/2020 12 :00:00 AM EST - 12/13/2020 12:00:00 AM EST [facility] ([facility]) CVR Blood Pressure 12/13/2020 12:00:00 AM EST - 2020 12:00:00 AM EST [facility] ([facility]) OFFICE VISIT, EST 12/13/2020 12:00:00 AM EST - 021 12:00:00 AM EST [facility] ([facility]) TRICHOMONAS VAGIN, DIR PROBE 12/13/2020 12:00:00 AM EST - 12/13/2020 12:00:00 AM EST [facility] ([facility]) ORNELAS VAG, DNA, DIR PROBE 12/13/2020 1 2:00:00 AM EST - 12/13/2020 12:00:00 AM EST [facility] ([facility]) LAMAR, DNA, DIR PROBE 12/13/2020 12:00 :00 AM EST - 12/13/2020 12:00:00 AM EST [facility] ([facility]) ASSAY OF BODY FLUID ACIDITY 12/13/2020 1 2:00:00 AM EST - 12/13/2020 12:00:00 AM EST [facility] ([facility]) SMEAR, WET MOUNT, SALINE/INK 12/13/2020 12:00:00 AM EST - 12/13/2020 12:00:00 AM EST [facility] ([facility]) URINE TEST 12/13/2020 12:00:00 AM EST - 12/13/2020 12:00:00 AM EST [facility] ([facility]) NURSE ONLY 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 150 Mg Nurse/CA 2020 12:00:00 AM EDT - 2020 12:00:00 AM EDT [facility] ([facility]) CVR BC Ending Method HORM.INJ. 3 MOS 12:00:00 AM EDT - 2020 12:00:00 AM EDT [facility] ([facility]) SMEAR, WET MOUNT, SALINE/INK 2020 12:00:00 AM EDT - 2020 12:00:00 AM EDT [facility] ([facility]) ASSAY OF BODY FLUID ACIDITY 2020 1 2:00:00 AM EDT - 2020 12:00:00 AM EDT [facility] ([facility]) TRICHOMONAS VAGIN, DIR PROBE 2020 12:00:00 AM EDT - 2020 12:00:00 AM EDT [facility] ([facility]) ORNELAS VAG, DNA, DIR PROBE 2020 1 2:00:00 AM EDT - 2020 12:00:00 AM EDT [facility] ([facility]) LAMAR, DNA, DIR PROBE 2020 12:00 :00 AM EDT - 2020 12:00:00 AM EDT [facility] ([facility]) OFFICE VISIT, EST 2020 12:00:00 AM EDT - 2 020 12:00:00 AM EDT [facility] ([facility]) URINE TEST 2020 12:00:00 AM EDT - 2020 12:00:00 AM EDT [facility] ([facility]) 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 STI / H 08/08/2020 12:00:00 AM EDT - 08/08/2020 12:00:00 AM EDT [facility] ([facility]) 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 Other 08/08/2020 12:00:00 AM EDT - 2019 12:00:00 AM EDT [facility] ([facility]) 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 Nutrition 08/08/2020 12:00: 00 AM EDT - 08/08/2020 12:00:00 AM EDT [facility] ([facility]) 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 Contraceptive 08/08/2020 12 :00:00 AM EDT - 08/08/2020 12:00:00 AM EDT [facility] ([facility]) CVR Med.Svc. Height/Weight 08/08/2020 12 :00:00 AM EDT - 08/08/2020 12:00:00 AM EDT [facility] ([facility]) CVR Blood Pressure 08/08/2020 12:00:00 AM EDT - 2019 12:00:00 AM EDT [facility] ([facility]) CVR Med.Svc. 2-10 Female Full Exam Panel 08/08/2020 12:00:00 AM EDT - 08/08/2020 12:00:00 AM EDT [facility] ([facility]) CVR Med.Svc. Other 08/08/2020 12:00:00 AM EDT - 2019 12:00:00 AM EDT [facility] ([facility]) HCS Without Test 08/08/2020 12:00:00 AM EDT - 08/08/20 20 12:00:00 AM EDT [facility] ([facility]) CYTOPATH, C/V, THIN LAYER 08/08/2020 12: 00:00 AM EDT - 08/08/2020 12:00:00 AM EDT [facility] ([facility]) N.GONORRHOEAE, SWAB 08/08/2020 12:00:00 AM EDT - 08/08 12:00:00 AM EDT [facility] ([facility]) CHYLMD TRACH, SWAB 08/08/2020 12:00:00 AM EDT - 2019 12:00:00 AM EDT [facility] ([facility]) PREV VISIT, EST, AGE 18-39 08/08/2020 12 :00:00 AM EDT - 08/08/2020 12:00:00 AM EDT [facility] ([facility]) Results ID Date Data Source [id number] 08/16/2021 12:00:00 AM EDT [facility] Name Value Range Interpretation Code Description Data Olivia rce(s) Supporting Document(s) SARS-CoV2 Rapid Antigen Negative [facility] This lab was ordered by [facility] and reported by [facility]. ID Date Data Source [id number] 07/10/2021 09:37:42 AM EDT [facility] ([facility]) Name Value Range Interpretation Code Description Data Olivia rce(s) Supporting Document(s) NegativeLot: [id number]: 11/24/2022 High Sensitivity Urine Test [facility] ([facility]) ID Date Data Source [id number] 04/21/2021 10:45:02 AM EDT [facility] ([facility]) Name Value Range Interpretation Code Description Data Olivia rce(s) Supporting Document(s) NegativeLot: [id number]: 10/24/2022 High Sensitivity Urine Test [facility] ([facility]) ID Date Data Source [id number] 12/13/2020 10:52:49 AM EST [facility] ([facility]) Name Value Range Interpretation Code Description Data Olivia rce(s) Supporting Document(s) pH: 6.5. Vaginal pH [facility] ([facility]) ID Date Data Source [id number] 12/13/2020 10:52:41 AM EST [facility] ([facility]) Name Value Range Interpretation Code Description Data Olivia rce(s) Supporting Document(s) Hyphae/Lamar: no; Budding yeast: no; Trich: no; Clue cells: no; WBCs: no; Amine/Whiff test: negative; pH: 6.5 Wet Prep NextGen ([facility]) ID Date Data Source [id number] 12/13/2020 10:40:29 AM EST NextGen ([facility]) Name Value Range Interpretation Code Description Data Olivia rce(s) Supporting Document(s) NegativeLot: [id number]: 02/22/2022 High Sensitivity Urine Test NextGen ([facility]) ID Date Data Source [id number] 12/13/2020 12:00:00 AM EST NextGen ([facility]) Name Value Range Interpretation Code Description Data Olivia rce(s) Supporting Document(s) Not Detected Not Detected Trichomonas vaginalis NextGen ([facility]) DETECTED Not Detected Abnormal (applies to non-num skye results) Gardnerella vaginalis NextGen ([facility]) Not Detected Not Detected Lamar species NextG en ([facility]) A positive (detected) result for Lamar , Gardnerella and/or Trichomonas means nucleic acid for Lamar species,G. vaginalis and/or T. vaginalis, respectively is presentin the sample and indicates the patient has candidiasis,bacterial vaginosis, and/or trichomoniasis when consistentwith clinical signs and symptoms. Simultaneous infectionsby more than one organism are common.Negative results (not detected) for Lamar, Gardnerella orTrichomonas tests suggest the patient does not havecandidiasis, bacterial vaginosis and/or trichomoniasis,respectively, when consistent with clinical signs andsymptoms. Performed by: CDD ([id number]) ID Date Data Source [id number] 10/19/2020 12:00:00 PM EST [facility] Name Value Range Interpretation Code Description Data Olivia rce(s) Supporting Document(s) SARS coronavirus 2 RNA [facility] This lab was ordered by [facility] and reported by [facility]. ID Date Data Source [id number] 2020 01:36:58 PM EDT NextGen ([facility]) Name Value Range Interpretation Code Description Data Olivia rce(s) Supporting Document(s) Hyphae/Lamar: no; Budding yeast: no; Trich: no; Clue cells: yes (>=20%); WBCs: no; Amine/Whiff test: positive; pH: 5.5 Abnormal (applies to non-numeric results) Wet Prep NextGen ([facility]) ID Date Data Source [id number] 2020 01:36:29 PM EDT NextGen ([facility]) Name Value Range Interpretation Code Description Data Olivia rce(s) Supporting Document(s) pH: 5.5. Vaginal pH [facility] ([facility] ID Date Data Source [id number] 2020 01:22:16 PM EDT NextGen ([facility]) Name Value Range Interpretation Code Description Data Olivia rce(s) Supporting Document(s) NegativeLot: [id number]: 11/24/2021 High Sensitivity Urine Test NextGen ([facility]) ID Date Data Source [id number] 2020 12:00:00 AM EDT [facility] ([facility]) Name Value Range Interpretation Code Description Data Olivia rce(s) Supporting Document(s) Not Detected Not Detected Trichomonas vaginalis NextGen ([facility]) Not Detected Not Detected Lamar species NextG en ([facility]) A positive (detected) result for Lamar , Gardnerella and/or Trichomonas means nucleic acid for Lamar species,G. vaginalis and/or T. vaginalis, respectively is presentin the sample and indicates the patient has candidiasis,bacterial vaginosis, and/or trichomoniasis when consistentwith clinical signs and symptoms. Simultaneous infectionsby more than one organism are common.Negative results (not detected) for Lamar, Gardnerella orTrichomonas tests suggest the patient does not havecandidiasis, bacterial vaginosis and/or trichomoniasis,respectively, when consistent with clinical signs andsymptoms. Performed by: AI ([id number]) Not Detected Not Detected [facility]is [facility] ID Date Data Source [id number] 08/24/2020 08:54:[address] [facility] Measurements & CalculationsHeight: 62 inches (5 ft. 2 in.) 157.48 cm Weight: 162 pounds 2 oz. 73.70 kg Body Mass Index (BMI): 29.76BMI Interpretation: OverweightBody Surface Area (BSA): 1.75Vital SignsTemperature: 97.1F tympanic Pulse Rate: 107 beats/minuteRespiratory Rate: 18 respirations/minuteBlood Pressure: 1 38/99 O2 Saturation: 97% room airVital Signs performed by: Peter Van LPN, August 24, 2020 9:04 AMInitial Intake Information From: patientRoom #: 1Infectious Disease / Travel ScreeningRecent travel for you or any close contacts? NoHave you had any close contact with anyone diagnosed with or under investigation for COVID-19 (coronavirus)? NoFever? NoRespiratory symptoms: cough, cold, congestion, shortness of breath, difficulty breathing? NoLoss of smell? NoLoss of taste? NoSmoking, Tobacco, Vaping or Smoke Exposure StatusSmoke Status: former smokerTobacco Use: NoDo you vape? NoPassive Smoke Exposure: NoMenstrual HistoryAny possibility of ? NoComments: unknkown LMP Pt is on depo but is sexually active Healthcare HistorySince your last office visit...Have you been admitted to the hospital? NoHave you been to an emergency room (ER) or urgent care clinic? Yes - [facility] room (ER) or urgent care date reported today: 08/21/2020Have you seen another healthcare provider? Yes - [facility] Have you seen a dentist? Yes - NOCOIntake performed by: Peter Van LPN, August 24, 2020 8:58 AMRate Your HealthIn general, would you say your health is? FairPain AssessmentAre you currently having any pain which... You would like your provider to address? Yes Affects your activity level? YesDepression Screening - PHQ-2Over the last two weeks, have you... Had little interest or pleasure in doing things? Nearly every day Been feeling down, depressed, or hopeless? Nearly every day PHQ-2 Score: 6Anxiety Screening - MITCHEL-2Over the last two weeks, have you been... Feeling nervous, anxious, or on edge? Nearly every day Unable to stop or control worrying? Nearly every day MITCHEL-2 Score: 6Food InsecurityWithin the past year...Did you worry whether your food would run out before you got money to buy more? Never trueWas there a time when the food you bought didn't last and you didn't have money to get more? Never trueGeneralized Anxiety Disorder 7-Item Screening (MITCHEL-7)Answer Guide:0 = Not at all1 = Several days2 = Over half the days3 = Nearly every dayOver the last 2 weeks, how often have you been bothered by the following problems?Feeling nervous, anxious, or on edge: 3Not being able to stop or control worryinWorrying too much about different things: 3Trouble relaxinBeing so restless that it's hard to sit still: 1Becoming easily annoyed or irritable: 2Feeling afraid as if something awful might happen: 1Answer Guide:0 = Not difficult at all1 = Somewhat difficult2 = Very difficult3 = Extremely difficultHow difficult have these made it for you to do your work, t donnell care of things at home, or get along with other people? 2GAD-7 Screening Results MITCHEL-2 Score: 6GAD-7 Score: 16Functional Impairment: Very difficultRecommendation: Severe anxietyPHQ-9 1. Over the last 2 weeks, patient reports the following frequency of symptoms: a. Little interest or pleasure in doing things -Nearly every day b. Feeling down, depressed, or hopeless -Nearly every day c. Trouble falling asleep, staying asleep, or sleeping too much -Nearly every day d. Feeling tired or having little energy -More than half the days e. Poor appetite or overeating -Nearly every day f. Feeling bad about yourself, feeling that you are a failure, or feeling that you have let yourself or your family down -More than half the days g. Trouble concentrating on things such as reading the newspaper or watching television -Nearly every day h. Moving or speaking so slowly that other people could have noticed. Or being so fidgety or restless that you have been moving around a lot more than usual -More than half the days i. Thinking that you would be better off or that you want to hurt yourself in some way -Several days2. If you checked off any problems, how difficult have these problems made it for you to do your work, take care of things at home, or get along with other people? -Very DifficultToday's PHQ-9 Results Score: 22 Severity: Severe Diagnosis Recommendation: Major Depression Functional Impairment: Very DifficultToday's Follow-Up Action Depression follow-up done. Follow-Up Action: Scheduled with Psychiatry - existing careArin AssessmentPain ScaleNumeric Rating Scale: Location: abdomenDuration: 4-7 daysFrequency: DailyCharacter/Quality: aching, burning and pressureIs the pain radiating? NoScreening, Brief Intervention, & Referral to Treatment (SBIRT)Pre-Screening Questions How many times have you have 4 or more drinks in a day? 0How many times have you used an illegal drug or used a prescription medication for a non-medical reason? 0Performed by: Peter Van LPN, August 24, 2020 9:02 AMPatient History Medical History:Anxiety trauma/stress disordermajor depressionHemrrhoidsAbdominal painInsomniaHyperemesis gravidaVaricella (chickenpox)Surgical History:10-14 teeth removedFamily History:ADHD (father)suicide (aunt)suicide attempt (father)fibromyalgia (father)Schizophrenia (Maternal Grandmother)COPD (Father)Social/Personal History: Chief ComplaintS ER DC F/U for NVD RM 1 History of Present Illness (HPI)Pt is a 29 y/o female, presents for [facility] ER follow-up. Pt was seen at [facility] ER 08/20/2020 for nausea, vomiting, diarrhea. Was diagnosed with marijuana hyperemesis, discharged with Haloperidol and Promethazine for nausea. Pt has had multiple ER visits over the last month for the same complaints: N/V/D and abdominal pain. Pt does report hx of single sustained episode of vomiting as a child for years, seen once at that time by GI without workup. Current symptoms worse for the last month. Pt states last marijuana use was a few weeks ago. Has been taking medications sporadically due to persistant nausea and vomiting. Admits to diarrheal stools in the AM, then alternate with constipated stools and diarrhea over the course of the day. Pt was seen by [facility] GI Dr. Diaz around 08/03/2020 for initial consult. Scheduled tomorrow for gallbladder imaging, also needs to do labs and stool sample for him. Ultimately needs EGD and C-scope. Transitions of Care InboundProblem ReviewProblem List was reviewed and/or updated during this visit.Medication Reconciliation & ReviewMedication List was reviewed and/or updated during this visit, including review of any ncui-nau-kxxluko medications, herbal therapies, and/or supplements.Allergy ReviewAllergy List was reviewed and/or updated during this visit. Patient has no known allergies.Provider Calculated and Reviewed all Clinical Protocols for patient today. Review of Systems General: Complains of loss of appetite. Denies chills, dizziness, fatigue, fever. Cardiovascular: Denies chest pain, palpitations, feeling faint. Respiratory: Denies cough, difficulty breathing, shortness of breath. Gastrointestinal: Complains of see HPI, nausea, vomiting, diarrhea, constipation, pain or discomfort. Denies blood in stool, black or tarry stools. Genitourinary: Denies pain with urination, burning with urination, blood in urine, pelvic pain. Skin: Denies rash, suspicious lesions. Neurologic: Denies weakness, feeling faint. Psychiatric: Complains of depression, anxiety. established with [facility] BHPhysical ExamGeneral Appearance: well nourished, well hydrated, no acute distressEyes, External: conjunctivae and lids normal, EOMIRespiratory, Auscultation: clear to auscultation bilaterally; no rales, rhonchi, or wheezesCardiovascular, Auscultation: S1, S2 audible; no murmur, rub, or gallop; RRRPeripheral Circulation: no clubbing, cyanosis, edema, or varicositiesAbdomen: soft, epigastric tenderness, no masses, bowel sounds normalGait & Station: normalSkin, Inspection: good turgorOrientation: oriented to time, place, and personMood & Affect: anxious appearingJudgment & Insight: intactCare Management Plan Transitions of CareInboundRate Your HealthIn general, would you say your health is? 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 If you are unable to keep the Promethazine down, then call for Zofran dissolvable if needed. Continue with current GI workup, please complete there labs/studies as soon as possible to help determine your condition. Continue to avoid ALL marijuana and drug use.Diarrhea, unspecified (ICD-787.91) (IXL72-S78.7) Assessment: Instructions: [place] diet, sips of gatorade/powerade if not eating well. Please try to maintain adequate fluid intake. Please try to maintain adequate nutrition.Abdominal pain, epigastric (ICD-789.06) (ALY15-R47.13) Assessment: Instructions: Continue with either omeprazole or famotidine, whichever you tolerate better, for acid reduction.Anxiety depression (ICD-300.09) (YUE48-M02.8) Assessment: Instructions: Continue per [facility].Removed:Nausea (ICD-787.02) (RZS35-X27.0), Maculopapular eruption (ICD- 782.1) (GEL73-A62)Patient Instructions/Care Plan: Nausea with vomiting- unspecified: Continue Haloperidol and Promethazine as prescribed. If you are unable to keep the Promethazine down, then call for Zofran dissolvable if needed. Continue with current GI workup, please complete there labs/studies as soon as possible to help determine your condition. Continue to avoid ALL marijuana and drug use.Diarrhea- unspecified: [place] diet, sips of gatorade/powerade if not eating well. Please try to maintain adequate fluid intake. Please try to maintain adequate nutrition.Abdominal pain- epigastric: Continue with either omeprazole or famotidine, whichever you tolerate better, for acid reduction.Cannabis abuse- in remission: Remain drug free.Anxiety depression: Continue per [facility]. Plan developed in collaboration with patient and/or familyMedications:FAMOTIDINE 20 MG ORAL TABLETPROMETHAZINE HCL 25 MG ORAL TABLETHALOPERIDOL 5 MG ORAL TABLETOMEPRAZOLE 20 MG ORAL CAPSULE DELAYED RELEASEFLUOXETINE HCL 10 MG ORAL CAPSULEMedication Changes:Added: HALOPERIDOL 5 MG ORAL TABLET-1 tab PO TIDPROMETHAZINE HCL 25 MG ORAL TABLET-take 1 tablet po q 6 hrs prn nauseaFAMOTIDINE 20 MG ORAL TABLET-take 1 tablet po dailyRemoved:METOCLOPRAMIDE HCL 10 MG ORAL TABLET-1 tab PO Q6H PRN for Nausea, ONDANSETRON 4 MG ORAL TABLET DISINTEGRATING-take one tablet by mouth twice daily as needed Qty: 60[Tablet] Refills: 0Changed:From: ORAL FLUOXETINE HCL 10 MG ORAL CAPSULE Qty: [id number] To: FLUOXETINE HCL 10 MG ORAL CAPSULE-1 capsule PO dailyAllergies:No Known Allergies (updated 08/24/2020) Orders:Adult - Ofc Vst, EST, Level IV [[id number]-03377] Follow-Up Return to clinic: as needed, per GI Clinical Visit Summary Completed Name Value Range Interpretation Code Description Data Olivia rce(s) Supporting Document(s) Procedure Social History Code Duration Value Status Description Data Source(s ) 07/10/2021 12:00:00 AM EDT Occasional cigarette smoker completed Occasional cigarette smoker NextGen ([facility]) Smoking 07/10/2021 12:00:00 AM EDT Light tobacco smoker comple mariola Light tobacco smoker NextGen ([facility]) Vital Signs ID Date Data Source UNK Name Value Range Interpretation Code Description Data Source(s) Body height 157.48 cm 157.48 cm [facility]Gen ([facility] Body weight 78.109 kg 78.109 kg [facility] Systolic blood pressure 128 mm[Hg] 128 mm[Hg] N extGen ([facility]) Diastolic blood pressure 80 mm[Hg] 80 mm[Hg] NextGen ([facility]) Body mass index (BMI) [Ratio] 31.50 kg/m2 Overweight 31.50 kg/m2 [facility] ([facility]) Diastolic blood pressure 113 mm[Hg] 113 mm[Hg] ESPERANCE ([facility]) Body height 62 [in_i] 62 [in_i] [facility] ([facility]) Body mass index (BMI) [Ratio] 31.3 kg/m2 31.3 k g/m2 JEFFREY ([facility]) Systolic blood pressure 147 mm[Hg] 147 mm[Hg] A THENA ([facility]) Body weight 2738 [oz_av] 2738 [oz_av] JEFFREY ([facility]) Body height 157.48 cm 157.48 cm NextGen [facility] Body weight 80.558 kg 80.558 kg NextGen ([facility]) Systolic blood pressure 138 mm[Hg] 138 mm[Hg] N extGen ([facility]) Diastolic blood pressure 78 mm[Hg] 78 mm[Hg] [facility] ([facility] Body mass index (BMI) [Ratio] 32.48 kg/m2 Overweight 32.48 kg/m2 Next[facility] ([facility]) Systolic blood pressure 138 mm[Hg] 138 mm[Hg] N extGen ([facility]) Diastolic blood pressure 78 mm[Hg] 78 mm[Hg] NextGen ([facility]) Body height 157.48 cm 157.48 cm [facility]Gen ([facility] Body weight 80.739 kg 80.739 kg NextGen ([facility] Systolic blood pressure 143 mm[Hg] 143 mm[Hg] N extGen ([facility]) Diastolic blood pressure 103 mm[Hg] 103 mm[Hg] NextGen ([facility]) Body mass index (BMI) [Ratio] 32.56 kg/m2 Overweight 32.56 kg/m2 NextGen ([facility]) Body height 157.48 cm 157.48 cm NextGen ([facility] Body weight 78.018 kg 78.018 kg NextGen ([facility] Systolic blood pressure 120 mm[Hg] 120 mm[Hg] N extGen ([facility]) Diastolic blood pressure 80 mm[Hg] 80 mm[Hg] NextGen ([facility]) Body mass index (BMI) [Ratio] 31.46 kg/m2 Overweight 31.46 kg/m2 Next[facility] ([facility]) Body height 157.48 cm 157.48 cm [facility] ([facility] [place] [facility] Body weight 79.832 kg 79.832 kg NextGen ([facility] [place] Systolic blood pressure 125 mm[Hg] 125 mm[Hg] N extGen ([facility]) Diastolic blood pressure 60 mm[Hg] 60 mm[Hg] NextGen ([facility]) Body mass index (BMI) [Ratio] 32.19 kg/m2 Overweight 32.19 kg/m2 NextGen ([facility]) Body height 157.48 cm 157.48 cm NextGen ([facility] [place] [facility] Body weight 78.471 kg 78.471 kg NextGen ([facility] [place] [facility] Systolic blood pressure 118 mm[Hg] 118 mm[Hg] N extGen ([facility]) Diastolic blood pressure 84 mm[Hg] 84 mm[Hg] NextGen ([facility]) Body mass index (BMI) [Ratio] 31.64 kg/m2 Overweight 31.64 kg/m2 NextGen ([facility]) Diastolic blood pressure 99 mm[Hg] 99 mm[Hg] JEFFREY ([facility]) Body height 62 [in_i] 62 [in_i] JEFFREY ([facility]) Body mass index (BMI) [Ratio] 29.76 kg/m2 29.76 kg/m2 JEFFREY ([facility]) Systolic blood pressure 138 mm[Hg] 138 mm[Hg] A THENA ([facility]) Body weight 2594.08 [oz_av] 2594.08 [oz_av] ATH MANSI ([facility]) Systolic blood pressure 145 mm[Hg] 145 mm[Hg] N extGen ([facility]) Diastolic blood pressure 100 mm[Hg] 100 mm[Hg] NextGen ([facility]) Systolic blood pressure 147 mm[Hg] 147 mm[Hg] N extGen ([facility]) Diastolic blood pressure 98 mm[Hg] 98 mm[Hg] NextGen ([facility]) Body height 157.48 cm 157.48 cm NextGen ([facility] [place] [facility] Body weight 74.389 kg 74.389 kg NextGen ([facility] [place] [facility] Systolic blood pressure 138 mm[Hg] 138 mm[Hg] N extGen ([facility]) Diastolic blood pressure 97 mm[Hg] 97 mm[Hg] NextGen ([facility]) Body mass index (BMI) [Ratio] 30.00 kg/m2 Overweight 30.00 kg/m2 NextGen ([facility]) Systolic blood pressure 132 mm[Hg] 132 mm[Hg] Yoli SWEENEY ([facility]) Diastolic blood pressure 76 mm[Hg] 76 mm[Hg] CARLEY ([facility]) Body height 62 [in_i] 62 [in_i] [facility] ([facility]) 5'2" Body weight 163.00 [lb_av] 163.00 [lb_av] MEDEN T ([facility]) Body mass index (BMI) [Ratio] 29.8 kg/m2 29.8 k g/m2 [facility] ([facility]) Body weight 73.937 kg 73.937 kg [facility] ([facility]) Patient Treatment Plan of Care Planned Activity Planned Date Details Description Data Source (s) medroxyprogesterone acetate 150 MG/ML Injectable Suspe nsion 07/10/2021 12:00:00 AM EDT [facility] [place] [facility] Metronidazole 500 MG Oral Tablet 05/22/2021 12:00:00 AM EDT [facility] ([facility]) Metronidazole 0.0075 MG/MG Vaginal Gel [MetroGel] 04/27/2021 12: 00:00 AM EDT [facility] ([facility]) Metronidazole 0.0075 MG/MG Vaginal Gel [MetroGel] 04/26/2021 12: 00:00 AM EDT [facility]Gen ([facility]) Ondansetron 4 MG Disintegrating Oral Tablet 04/21/2021 12:00:00 AM EDT NextGen ([facility]) Ondansetron 4 MG Disintegrating Oral Tablet 04/21/2021 12:00:00 AM EDT [facility]Gen ([facility]) Metronidazole 0.0075 MG/MG Vaginal Gel [MetroGel] 12/15/2020 12: 00:00 AM EST [facility]Gen ([facility]) Metronidazole 500 MG Oral Tablet 12/15/2020 12:00:00 AM EST NextGen ([facility]) medroxyprogesterone acetate 150 MG/ML Injectable Suspe nsion 12/13/2020 12:00:00 AM EST [facility] medroxyprogesterone acetate 150 MG/ML Injectable Suspe nsion 2020 12:00:00 AM EDT [facility] Metronidazole 500 MG Oral Tablet 2020 12:00:00 AM EDT NextGen ([facility]) Levonorgestrel 1.5 MG Oral Tablet [Plan B One-Step] 09/13/20 12:00:00 AM EDT NextGen ([facility]) medroxyprogesterone acetate 150 MG/ML Injectable Suspe nsion 05/23/2020 12:00:00 AM EDT [facility] medroxyprogesterone acetate 150 MG/ML Injectable Suspe nsion 02/15/2020 12:00:00 AM EDT [facility] Fluoxetine 10 MG Oral Capsule NextGen ([facility]) Promethazine Hydrochloride 12.5 MG Oral Tablet NextGen ([facility]) Omeprazole 10 MG Delayed Release Oral Capsule NextGen ([facility]) Haloperidol 5 MG Oral Tablet NextGen ([facility]) Ondansetron 4 MG Oral Tablet [Zofran] [facility] ([facility] of [facility])
[2021-09-19 13:33] LABS: BASO % 0.3 % (0.0-1.0); HEMATOCRIT 45.3 % (36.0-47.0); HEMOGLOBIN 15.8 g/dl (12.0-15.5); LYMPH # 0.9 10^3/uL (1.5-5.0); LYMPH % 6.6 % (24.0-44.0); MEAN CORPUSCULAR HEMOGLOBIN 35.9 pg (27.0-33.0); MEAN CORPUSCULAR HGB CONC 34.9 g/dl (32.0-36.5); MONO # 0.6 10^3/uL (0.0-0.8); MONO % 4.7 % (2.0-8.0); NEUTROPHILS # 11.8 10^3/uL (1.5-8.5); NEUTROPHILS % 87.8 % (36.0-66.0); PLATELET COUNT, AUTOMATED 199 10^3/uL (150-450); WHITE BLOOD COUNT 13.5 10^3/uL (4.0-10.0)
[2021-09-19] MEDS ORDERED: HALOPERIDOL 5MG/ML VIAL (J1630 PER 1) IV ONE (13:45)
[2021-09-19 14:04] LABS: ALBUMIN 3.6 GM/DL (3.2-5.2); ALT/SGPT 128 U/L (12-78); BILIRUBIN,DIRECT 1.5 MG/DL (0.0-0.2); BILIRUBIN,TOTAL 2.8 MG/DL (0.2-1.0); LIPASE 77 U/L (73-393); TOTAL PROTEIN 7.2 GM/DL (6.4-8.2)
[2021-09-19 15:11] LABS: HEPATITIS B SURFACE ANTIGEN NEGATIVE (NEGATIVE)
--- NOTE | 2021-09-19 15:22 | REP ---
INDICATION: abdominal pain; elevated LFT's. COMPARISON: 06/21/2021 TECHNIQUE: Real-time sonographic evaluation of the right upper quadrant with Doppler FINDINGS: Multiple ultrasonographic images of the liver show diffuse increased echoes throughout the hepatic parenchyma without evidence of a mass or ductal dilatation. The common bile duct measures approximately 4 mm in its greatest transverse dimension. Multiple ultrasonographic images of the gallbladder show no focal or diffuse gallbladder wall thickening. There are no echogenic foci within the gallbladder lumen, which casts acoustic shadows. There is no pericholecystic edema. Images of the pancreatic region show no gross abnormality. The imaged portion of the right kidney is unremarkable. IMPRESSION: Fatty infiltration of the liver. No significant change from the prior exam. Accredited by the [employer] in General Ultrasound. <Electronically signed by Pardeep Simons > 09/19/21 [id number]
[2021-09-19 15:38] LABS: HEPATITIS C VIRUS ABY INDEX < 0.0 INDEX (<0.8)
[2021-09-19 15:39] LABS: HEPATITIS B CORE ANTIBODY IGM NEGATIVE (NEGATIVE)
[2021-09-19] MEDS ORDERED: ONDA4TAB6 PO (16:28)
[2021-09-19 16:43] VITALS: BP 132/78
== END 2021-09-19 16:42 | disposition home or self-care (01) ==
LOC: EDBD 12:20 → M ED 12:20 → EDSEX 12:20 → M ED 16:42
DX: F12.188 Cannabis abuse with other cannabis-induced disorder (principal); R10.9 Unspecified abdominal pain; F10.10 Alcohol abuse, uncomplicated; R94.5 Abnormal results of liver function studies; K76.0 Fatty (change of) liver, not elsewhere classified; F33.1 Major depressive disorder, recurrent, moderate; F41.9 Anxiety disorder, unspecified; F17.200 Nicotine dependence, unspecified, uncomplicated; Z79.899 Other long term (current) drug therapy
CPT/HCPCS: 76705; 80076; 83690; 84702; 85025; 86705; 86709; 86803; 87340; 93041; 96361; 96374; 99284; J1630

== ENCOUNTER → 2021-11-08 | Outpatient (CLI) | payer OTHER ==
[~2021-11-08] MED LIST changes: +ONDA4TAB6 PO
--- NOTE | 2021-11-08 18:38 | REP ---
INDICATION: PAIN RUL, SOB COMPARISON: 05/12/2021 TECHNIQUE: PA and lateral. FINDINGS: The mediastinum and cardiac silhouette are normal. The lung dior are clear and without acute consolidation, effusion, or pneumothorax. The skeletal structures are intact and normal. IMPRESSION: No acute cardiopulmonary process. <Electronically signed by Paul Parker > 11/08/21 [id number]
== END ==
LOC: M RAD 18:01
PROVIDERS: ATTEND Physician Assistant
DX: R07.9 Chest pain, unspecified (principal); R06.02 Shortness of breath

== ENCOUNTER → 2021-12-25 04:51 | Emergency (ER) | payer OTHER ==
[~2021-12-25] VITALS: Ht 157.5 cm; Wt 77.3 kg
[~2021-12-25 04:51] MED LIST changes: -DICY20TA11 PO; +DICY20TA20 PO; -FLUC150T PO; +FLUC150T9 PO; -FLUO10CA16 PO; +FLUO10CA18 PO; -HALO5TA PO; +HALO5TAB33 PO; +OMEP-173 PO; -OMEP-218 PO; +ONDA-84; +ONDA-84 PO; -ONDA8TAB10; -ONDA8TAB10 PO
[2021-12-25 10:54] VITALS: BP 136/96
== END | disposition home or self-care (01) ==
LOC: M ED 04:51
DX: F12.188 Cannabis abuse with other cannabis-induced disorder (principal); F43.0 Acute stress reaction; R45.851 Suicidal ideations; F41.1 Generalized anxiety disorder; F32.A Depression, unspecified; F17.200 Nicotine dependence, unspecified, uncomplicated; F10.10 Alcohol abuse, uncomplicated; Z79.899 Other long term (current) drug therapy
CPT/HCPCS: 80048; 80076; 80143; 80307; 82077; 83690; 84443; 84703; 85025; 87631; 93041; 96361; 96374; 96375; 99285; J2405; J2765

== ENCOUNTER 2022-01-25 14:55 | Emergency (ER) | payer OTHER ==
[~2022-01-25] VITALS: Ht 157.5 cm; Wt 72.7 kg
[2022-01-25] MEDS ORDERED: HALOPERIDOL 5MG/ML VIAL (J1630 PER 1) IV ONE (15:30)
[2022-01-25] MEDS ORDERED: NS 1,000 ML IV ONE (15:30)
[2022-01-25 17:45] VITALS: BP 127/83
== END 2022-01-25 18:01 | disposition home or self-care (01) ==
LOC: M ED 14:55 → EDBD 14:55 → M ED 18:01
DX: R11.10 Vomiting, unspecified (principal); F12.188 Cannabis abuse with other cannabis-induced disorder
CPT/HCPCS: 96361; 96374; 99284; J1630

== ENCOUNTER 2022-01-31 00:22 | Emergency (ER) | payer OTHER ==
[~2022-01-31] VITALS: Ht 157.5 cm; Wt 72.7 kg
[2022-01-31] MEDS ORDERED: METR-265 (00:49)
[2022-01-31] MEDS ORDERED: LISI10TA22 (00:49)
[2022-01-31] MEDS ORDERED: DOXA1TAB49 (00:49)
[2022-01-31] MEDS ORDERED: NAPR-885 (00:49)
[2022-01-31 01:10] LABS: HEMATOCRIT 44.5 % (36.0-47.0); HEMOGLOBIN 15.4 g/dl (12.0-15.5); MEAN CORPUSCULAR HEMOGLOBIN 36.7 pg (27.0-33.0); MEAN CORPUSCULAR HGB CONC 34.6 g/dl (32.0-36.5); PLATELET COUNT, AUTOMATED 167 10^3/uL (150-450); WHITE BLOOD COUNT 5.4 10^3/uL (4.0-10.0)
[2022-01-31 01:47] LABS: RSV AMPLIFICATION NEGATIVE (NEGATIVE)
[2022-01-31 01:55] LABS: HCG, SERUM QUALITATIVE NEGATIVE (NEGATIVE)
[2022-01-31 02:11] LABS: ACETAMINOPHEN LEVEL < 2.0 UG/ML (10.0-30.0); ALBUMIN 3.7 GM/DL (3.2-5.2); ALT/SGPT 231 U/L (12-78); BILIRUBIN,DIRECT 0.5 MG/DL (0.0-0.2); BILIRUBIN,TOTAL 0.7 MG/DL (0.2-1.0); BLOOD UREA NITROGEN 3 MG/DL (7-18); CALCIUM LEVEL 9.3 MG/DL (8.5-10.1); CARBON DIOXIDE LEVEL 30 MEQ/L (21-32); CHLORIDE LEVEL 105 MEQ/L (98-107); CREATININE FOR GFR 0.68 MG/DL (0.55-1.30); ETHYL ALCOHOL (ETHANOL) 0.366 % (0.000-0.010); GLOMERULAR FILTRATION RATE > 60.0 (>60); GLUCOSE, FASTING 121 MG/DL (70-100); POTASSIUM SERUM 3.8 MEQ/L (3.5-5.1); SALICYLATE LEVEL < 1.7 MG/DL (5.0-30.0); SODIUM LEVEL 142 MEQ/L (136-145); TOTAL PROTEIN 7.2 GM/DL (6.4-8.2)
[2022-01-31 02:23] LABS: AMPHETAMINES LEVEL URINE NEGATIVE (NEGATIVE); BARBITURATES URINE NEGATIVE (NEGATIVE); BENZODIAZEPINES URINE NEGATIVE (NEGATIVE); CANNABINOIDS URINE POSITIVE (NEGATIVE); COCAINE METABOLITE URINE NEGATIVE (NEGATIVE); METHADONE URINE NEGATIVE (NEGATIVE); OPIATES URINE NEGATIVE (NEGATIVE); PHENCYCLIDINE URINE NEGATIVE (NEGATIVE)
[2022-01-31 07:45] VITALS: BP 117/74
== END 2022-01-31 08:32 | disposition home or self-care (01) ==
LOC: M ED 00:22 → EDBD 00:22 → M ED 08:32
DX: F10.129 Alcohol abuse with intoxication, unspecified (principal); R44.3 Hallucinations, unspecified; F41.8 Other specified anxiety disorders; F32.A Depression, unspecified; Z79.899 Other long term (current) drug therapy

== ENCOUNTER 2022-04-19 14:22 | Observation (INO) | payer OTHER ==
[~2022-04-19] VITALS: Ht 157.5 cm; Wt 70.5 kg
[~2022-04-19 14:22] MED LIST changes: +DOXA1TAB49; +LISI10TA22; +METR-265; +NAPR-885
[2022-04-19 17:15] LABS: HEMATOCRIT 43.6 % (36.0-47.0); HEMOGLOBIN 14.9 g/dl (12.0-15.5); MEAN CORPUSCULAR HEMOGLOBIN 33.1 pg (27.0-33.0); MEAN CORPUSCULAR HGB CONC 34.2 g/dl (32.0-36.5); MEAN CORPUSCULAR VOLUME 96.9 fl (80.0-96.0); PLATELET COUNT, AUTOMATED 231 10^3/uL (150-450); WHITE BLOOD COUNT 10.5 10^3/uL (4.0-10.0)
[2022-04-19 17:22] LABS: ACETAMINOPHEN LEVEL < 2.0 UG/ML (10.0-30.0); ALBUMIN 4.5 GM/DL (3.2-5.2); ALT/SGPT 31 U/L (12-78); BILIRUBIN,DIRECT 0.2 MG/DL (0.0-0.2); BILIRUBIN,TOTAL 0.3 MG/DL (0.2-1.0); BLOOD UREA NITROGEN 6 MG/DL (7-18); CARBON DIOXIDE LEVEL 20 MEQ/L (21-32); CHLORIDE LEVEL 110 MEQ/L (98-107); CREATININE FOR GFR 0.72 MG/DL (0.55-1.30); GLOMERULAR FILTRATION RATE > 60.0 (>60); GLUCOSE, FASTING 126 MG/DL (70-100); POTASSIUM SERUM 4.2 MEQ/L (3.5-5.1); SALICYLATE LEVEL 5.3 MG/DL (5.0-30.0); SODIUM LEVEL 145 MEQ/L (136-145); TOTAL PROTEIN 8.2 GM/DL (6.4-8.2)
[2022-04-19 17:29] LABS: AMPHETAMINES LEVEL URINE NEGATIVE (NEGATIVE); BARBITURATES URINE NEGATIVE (NEGATIVE); BENZODIAZEPINES URINE NEGATIVE (NEGATIVE); CANNABINOIDS URINE POSITIVE (NEGATIVE); COCAINE METABOLITE URINE NEGATIVE (NEGATIVE); METHADONE URINE NEGATIVE (NEGATIVE); OPIATES URINE NEGATIVE (NEGATIVE); PHENCYCLIDINE URINE NEGATIVE (NEGATIVE)
[2022-04-19 17:34] LABS: HCG, SERUM QUALITATIVE NEGATIVE (NEGATIVE)
[2022-04-19 17:51] LABS: RSV AMPLIFICATION NEGATIVE (NEGATIVE)
[2022-04-19] MEDS ORDERED: ONDANSETRON 4MG ORAL DISINTEGRATING TAB PO ONE (18:50)
[2022-04-19] MEDS ORDERED: HALOPERIDOL 5MG/ML VIAL (J1630 PER 1) IV ONE (19:15)
[2022-04-19] MEDS ORDERED: NS 1,000 ML IV ONE (19:15)
[2022-04-19] MEDS ORDERED: NAPR-849 PO (20:45)
[2022-04-19] MEDS ORDERED: HOME MED LIST COMPLETE! XX SCH (20:45)
[2022-04-19] MEDS ORDERED: FLUO-96 PO (20:45)
[2022-04-19] MEDS ORDERED: CLON0.2T PO (20:45)
[2022-04-19] MEDS ORDERED: ARIP1TAB6 PO (20:52)
[2022-04-19] MEDS ORDERED: METOCLOPRAMIDE INJ 10MG/2ML VIAL (J2765 PER 1) IV ONE (21:35)
[2022-04-19] MEDS ORDERED: LORazepam 2 MG/ML VIAL IV STA (22:29)
[2022-04-19] MEDS ORDERED: MAALOX 30 ML SUSP *UDC PO PRN (22:30)
[2022-04-19] MEDS ORDERED: ONDANSETRON 4MG/2ML VIAL IV PRN (22:30)
[2022-04-19] MEDS ORDERED: MOM 30ML SUSPENSION UDC PO PRN (22:30)
[2022-04-19] MEDS ORDERED: LORazepam 2 MG TAB PO PRN (22:30)
[2022-04-19] MEDS ORDERED: ACETAMINOPHEN TAB 650MG DOSE (2X325MG) PO PRN (22:30)
[2022-04-20] MEDS ORDERED: LORazepam 2 MG/ML VIAL As Ordered ONE (00:28)
[2022-04-20] MEDS: THIAMINE 100 MG TAB PO SCH ×2 (00:35→09:07)
[2022-04-20 00:55] VITALS: BP 127/79
[2022-04-20 05:25] VITALS: BP 131/83
[2022-04-20 06:00] VITALS: BP 131/83
[2022-04-20] MEDS ORDERED: FOLIC ACID 1 MG TAB PO SCH (09:00)
[2022-04-20] MEDS ORDERED: MULTIVITAMINS/MINERALS THERAP 1 TAB PO SCH (09:00)
[2022-04-20 14:00] VITALS: BP 126/82
[2022-04-20] MEDS ORDERED: ONDA4TAB6 PO (16:53)
== END 2022-04-20 17:20 | disposition home or self-care (01) ==
LOC: M ED 14:22 → M ED INP 22:29 → ENRESERV 04-20 00:25 → M MS5PR 04-20 00:55
PROVIDERS: ADMIT Family Medicine; ATTEND Family Medicine
DX: R45.851 Suicidal ideations (principal); F12.188 Cannabis abuse with other cannabis-induced disorder; R11.15 Cyclical vomiting syndrome unrelated to migraine; F32.A Depression, unspecified; F41.9 Anxiety disorder, unspecified; K21.9 Gastro-esophageal reflux disease without esophagitis; Z79.899 Other long term (current) drug therapy; F17.210 Nicotine dependence, cigarettes, uncomplicated
CPT/HCPCS: 80048; 80076; 80143; 80307; 82077; 84443; 84703; 85027; 87631; 96374; 96375; 99284; J1630; J2060; J2765

== ENCOUNTER 2022-09-04 14:19 | Emergency (ER) | payer OTHER ==
[~2022-09-04] VITALS: Ht 157.5 cm; Wt 70.1 kg
[~2022-09-04 14:19] MED LIST changes: +ARIP1TAB6 PO; +CLON0.2T PO; +FLUO-96 PO; +NAPR-849 PO
[2022-09-04] MEDS ORDERED: KETOROLAC TROMETHAMINE 10 MG TAB PO ONE (17:10)
[2022-09-04] MEDS ORDERED: IBUP80TA PO (18:16)
[2022-09-04 18:23] VITALS: BP 158/100
== END 2022-09-04 18:24 | disposition home or self-care (01) ==
LOC: M ED 14:19
DX: S30.0XXA Contusion of lower back and pelvis, initial encounter (principal); W01.0XXA Fall on same level from slipping, tripping and stumbling without subsequent striking against object, initial encounter; I10 Essential (primary) hypertension; K21.9 Gastro-esophageal reflux disease without esophagitis; F60.3 Borderline personality disorder; F17.200 Nicotine dependence, unspecified, uncomplicated; Z79.899 Other long term (current) drug therapy; Z79.83 Long term (current) use of bisphosphonates; Z79.891 Long term (current) use of opiate analgesic; Y92.9 Unspecified place or not applicable; Y93.9 Activity, unspecified; Y99.9 Unspecified external cause status

== ENCOUNTER → 2022-10-04 | Outpatient (CLI) | payer OTHER ==
[~2022-10-04] MED LIST changes: +IBUP80TA PO
[2022-10-04 19:20] LABS: HEMATOCRIT 44.6 % (36.0-47.0); HEMOGLOBIN 15.2 g/dl (12.0-15.5); MEAN CORPUSCULAR HEMOGLOBIN 33.6 pg (27.0-33.0); MEAN CORPUSCULAR HGB CONC 34.1 g/dl (32.0-36.5); MEAN CORPUSCULAR VOLUME 98.5 fl (80.0-96.0); PLATELET COUNT, AUTOMATED 226 10^3/uL (150-450); RED BLOOD COUNT 4.53 10^6/uL (4.00-5.40); WHITE BLOOD COUNT 5.1 10^3/uL (4.0-10.0)
[2022-10-04 19:24] LABS: ALBUMIN 4.1 GM/DL (3.2-5.2); ALT/SGPT 92 U/L (12-78); BILIRUBIN,TOTAL 0.6 MG/DL (0.2-1.0); BLOOD UREA NITROGEN 7 MG/DL (7-18); CALCIUM LEVEL 9.3 MG/DL (8.5-10.1); CARBON DIOXIDE LEVEL 26 MEQ/L (21-32); CHLORIDE LEVEL 104 MEQ/L (98-107); CHOLESTEROL LEVEL 270 MG/DL (<200); CHOLESTEROL RISK RATIO 4.576 (<5); CREATININE FOR GFR 0.68 MG/DL (0.55-1.30); GLOMERULAR FILTRATION RATE > 60.0 (>60); GLUCOSE, FASTING 106 MG/DL (70-100); HDL CHOLESTEROL 59 MG/DL (>40); LDL CHOLESTEROL 168 MG/DL (<100); NON-HDL-C 211 MG/DL; POTASSIUM SERUM 3.4 MEQ/L (3.5-5.1); SODIUM LEVEL 138 MEQ/L (136-145); TOTAL PROTEIN 7.7 GM/DL (6.4-8.2); TRIGLYCERIDES LEVEL 214 MG/DL (<150)
[2022-10-04 20:11] LABS: HEPATITIS B SURFACE ANTIGEN NEGATIVE (NEGATIVE)
[2022-10-05 12:31] LABS: HEPATITIS C VIRUS ABY INDEX 0.1 INDEX (<0.8)
== END ==
LOC: M WUC 15:20
PROVIDERS: ATTEND Nurse Practitioner Family
DX: F31.9 Bipolar disorder, unspecified (principal); F43.10 Post-traumatic stress disorder, unspecified; R74.01 Elevation of levels of liver transaminase levels

== ENCOUNTER 2022-10-23 17:21 | Emergency (ER) | payer OTHER ==
[~2022-10-23] VITALS: Ht 157.5 cm; Wt 68.2 kg
[2022-10-23 17:39] VITALS: BP 150/95
== END 2022-10-23 17:45 | disposition left against medical advice (07) ==
LOC: EDBD 17:21 → M ED 17:21
DX: Z53.21 Procedure and treatment not carried out due to patient leaving prior to being seen by health care provider (principal)

== ENCOUNTER 2023-04-11 12:28 | Emergency (ER) | payer OTHER ==
[~2023-04-11] VITALS: Ht 157.5 cm; Wt 68.2 kg
[~2023-04-11 12:28] MED LIST changes: +NYST-38 PO; -NYST50SS PO
[2023-04-11 13:38] LABS: BASO % 0.3 % (0.0-1.0); EOS % 0.1 % (0.0-3.0); HEMATOCRIT 48.5 % (36.0-47.0); HEMOGLOBIN 17.5 g/dl (12.0-15.5); LYMPH # 1.9 10^3/uL (1.5-5.0); LYMPH % 11.8 % (24.0-44.0); MEAN CORPUSCULAR HEMOGLOBIN 35.9 pg (27.0-33.0); MEAN CORPUSCULAR HGB CONC 36.1 g/dl (32.0-36.5); MEAN CORPUSCULAR VOLUME 99.6 fl (80.0-96.0); MONO # 1.1 10^3/uL (0.0-0.8); NEUTROPHILS # 12.6 10^3/uL (1.5-8.5); NEUTROPHILS % 80.4 % (36.0-66.0); PLATELET COUNT, AUTOMATED 243 10^3/uL (150-450); RED BLOOD COUNT 4.87 10^6/uL (4.00-5.40); WHITE BLOOD COUNT 15.7 10^3/uL (4.0-10.0)
[2023-04-11 14:02] LABS: LIPASE 24 U/L (12-53)
[2023-04-11 14:05] LABS: HCG, SERUM QUALITATIVE NEGATIVE (NEGATIVE)
[2023-04-11 14:20] LABS: ALBUMIN 3.8 G/DL (3.2-5.2); ALKALINE PHOSPHATASE 144 U/L (46-116); ALT/SGPT 78 U/L (7.0-40); AST/SGOT 107 U/L (<34); BILIRUBIN,DIRECT 0.7 MG/DL (<0.4); BILIRUBIN,TOTAL 1.5 MG/DL (0.3-1.2); BLOOD UREA NITROGEN 5 MG/DL (9-23); CALCIUM LEVEL 9.6 MG/DL (8.5-10.1); CARBON DIOXIDE LEVEL 15 MMOL/L (20-31); CHLORIDE LEVEL 94 MMOL/L (98-107); CREATININE FOR GFR 0.41 MG/DL (0.55-1.30); GLOMERULAR FILTRATION RATE > 60.0 (>60); GLUCOSE, FASTING 147 MG/DL (60-100); POTASSIUM SERUM 2.9 MMOL/L (3.5-5.1); SODIUM LEVEL 134 MMOL/L (136-145); TOTAL PROTEIN 7.3 G/DL (5.7-8.2)
[2023-04-11] MEDS ORDERED: NS 1,000 ML IV ONE ×2 (14:55→17:20)
[2023-04-11] MEDS ORDERED: KCL 10MEQ/100ML SWI (KRUN) 10 MEQ in IV 1 EA IV ONE ×2 (14:55→17:20)
[2023-04-11] MEDS ORDERED: ONDANSETRON 4MG 2ML VIAL As Ordered ONE (15:07)
[2023-04-11] MEDS ORDERED: ONDANSETRON 4MG 2ML VIAL IV ONE (15:10)
[2023-04-11] MEDS ORDERED: ISOVUE-370 76% 100ML VIAL As Ordered ONE (15:18)
[2023-04-11 15:20] LABS: MAGNESIUM LEVEL 1.8 MG/DL (1.8-2.4)
[2023-04-11 16:45] LABS: RSV AMPLIFICATION NEGATIVE (NEGATIVE)
[2023-04-11] MEDS ORDERED: METOCLOPRAMIDE INJ 10MG/2ML VIAL IV ONE (17:20)
[2023-04-11 19:03] LABS: BLOOD UREA NITROGEN < 5 MG/DL (9-23); CALCIUM LEVEL 8.7 MG/DL (8.5-10.1); CARBON DIOXIDE LEVEL 19 MMOL/L (20-31); CHLORIDE LEVEL 102 MMOL/L (98-107); CREATININE FOR GFR 0.39 MG/DL (0.55-1.30); GLOMERULAR FILTRATION RATE > 60.0 (>60); GLUCOSE, FASTING 109 MG/DL (60-100); SODIUM LEVEL 137 MMOL/L (136-145)
[2023-04-11 19:49] VITALS: BP 128/83
[2023-04-11] MEDS ORDERED: REGL10TA6 PO (19:53)
[2023-04-11] MEDS ORDERED: ONDA4TAB6 PO (19:53)
[2023-04-11] MEDS ORDERED: METOCLOPRAMIDE 10MG TAB PO ONE (20:20)
== END 2023-04-11 20:52 | disposition home or self-care (01) ==
LOC: M ED 14:37
DX: K52.9 Noninfective gastroenteritis and colitis, unspecified (principal); E87.6 Hypokalemia; E86.0 Dehydration; F41.9 Anxiety disorder, unspecified; F32.A Depression, unspecified; F12.10 Cannabis abuse, uncomplicated; F10.10 Alcohol abuse, uncomplicated; Z79.83 Long term (current) use of bisphosphonates; Z79.899 Other long term (current) drug therapy
CPT/HCPCS: 36415; 74177; 80048; 80076; 83690; 83735; 84703; 85025; 87631; 96365; 96366; 96375; 99284; J2405; J2765; Q9967

== ENCOUNTER → 2024-01-19 | Outpatient (REF) | payer OTHER | LOC: M LAB REF 18:07 | PROVIDERS: ATTEND Physician Assistant Medical | DX: R05.9 Cough, unspecified (principal); J10.1 Influenza due to other identified influenza virus with other respiratory manifestations ==

== ENCOUNTER 2024-03-05 16:17 | Emergency (ER) | payer OTHER ==
[~2024-03-05] VITALS: Ht 157.5 cm; Wt 50.9 kg
[2024-03-05 19:08] LABS: BASO % 0.4 % (0.0-1.0); EOS % 0.7 % (0.0-3.0); HEMATOCRIT 37.9 % (36.0-47.0); HEMOGLOBIN 13.7 g/dl (12.0-15.5); LYMPH # 3.2 10^3/uL (1.5-5.0); LYMPH % 59.4 % (24.0-44.0); MEAN CORPUSCULAR HEMOGLOBIN 36.9 pg (27.0-33.0); MEAN CORPUSCULAR HGB CONC 36.1 g/dl (32.0-36.5); MEAN CORPUSCULAR VOLUME 102.2 fl (80.0-96.0); MONO # 0.3 10^3/uL (0.0-0.8); MONO % 5.8 % (2.0-8.0); NEUTROPHILS # 1.8 10^3/uL (1.5-8.5); NEUTROPHILS % 33.5 % (36.0-66.0); PLATELET COUNT, AUTOMATED 148 10^3/uL (150-450); RED BLOOD COUNT 3.71 10^6/uL (4.00-5.40); WHITE BLOOD COUNT 5.4 10^3/uL (4.0-10.0)
[2024-03-05 19:18] LABS: ERYTHROCYTE SEDIMENTATION RATE 26 mm/hr (0-20)
[2024-03-05 19:30] LABS: LIPASE 45 U/L (12-53)
[2024-03-05 19:32] LABS: HCG, SERUM QUALITATIVE NEGATIVE (NEGATIVE)
[2024-03-05 19:35] LABS: THYROID STIMULATING HORMONE 2.729 uIU/ML (0.55-4.78)
[2024-03-05 19:38] LABS: ALBUMIN 3.4 G/DL (3.2-5.2); ALKALINE PHOSPHATASE 142 U/L (46-116); ALT/SGPT 65 U/L (7.0-40); AST/SGOT 210 U/L (<34); BILIRUBIN,DIRECT 0.2 MG/DL (<0.4); BILIRUBIN,TOTAL 0.4 MG/DL (0.3-1.2); BLOOD UREA NITROGEN < 5 MG/DL (9-23); CALCIUM LEVEL 8.9 MG/DL (8.5-10.1); CARBON DIOXIDE LEVEL 26 MMOL/L (20-31); CHLORIDE LEVEL 105 MMOL/L (98-107); CREATININE FOR GFR 0.36 MG/DL (0.55-1.30); GLOMERULAR FILTRATION RATE > 60.0 (>60); GLUCOSE, FASTING 86 MG/DL (60-100); MAGNESIUM LEVEL 1.7 MG/DL (1.8-2.4); POTASSIUM SERUM 3.3 MMOL/L (3.5-5.1); SODIUM LEVEL 143 MMOL/L (136-145); TOTAL PROTEIN 6.8 G/DL (5.7-8.2)
[2024-03-05] MEDS ORDERED: PROHANCE 279.3MG/ML 15ML VIAL As Ordered ONE (20:46)
[2024-03-05] MEDS: ONDANSETRON 4MG 2ML VIAL IV ONE (22:20)
[2024-03-05 23:03] VITALS: BP 132/97; TEMP 97.8; O2SAT 98
== END 2024-03-05 23:50 | disposition home or self-care (01) ==
LOC: M ED 16:17
DX: R20.2 Paresthesia of skin (principal); I10 Essential (primary) hypertension; K21.9 Gastro-esophageal reflux disease without esophagitis; K76.0 Fatty (change of) liver, not elsewhere classified; F41.9 Anxiety disorder, unspecified; F32.A Depression, unspecified; Z79.83 Long term (current) use of bisphosphonates; Z79.810 Long term (current) use of selective estrogen receptor modulators (SERMs); Z79.899 Other long term (current) drug therapy
CPT/HCPCS: 72157; 72158; 76705; 80048; 80076; 83690; 83735; 84443; 84703; 85025; 85652; 86140; 96374; 99284; A9576; J2405

== ENCOUNTER 2024-04-10 17:08 | Emergency (ER) | payer OTHER ==
[~2024-04-10] VITALS: Ht 157.5 cm; Wt 51.1 kg
[~2024-04-10 17:08] MED LIST changes: +FLUO-290 PO; -FLUO10CA18 PO
[2024-04-10] MEDS: IBUPROFEN 400MG TAB PO ONE (20:20)
[2024-04-10] MEDS: CEPHALEXIN 500 MG CAP PO ONE (20:20)
[2024-04-10] MEDS: BOOSTRIX VACCINE (TETANUS/DIPHTH/ACEL. PERTUSSIS) 0.5ML SYR IM ONE (20:21)
[2024-04-10 20:37] VITALS: BP 122/85; TEMP 98; O2SAT 99
[2024-04-10] MEDS ORDERED: CEPH500C PO (20:47)
== END 2024-04-10 20:54 | disposition home or self-care (01) ==
LOC: M ED 17:08
DX: S80.01XA Contusion of right knee, initial encounter (principal); S80.211A Abrasion, right knee, initial encounter; W19.XXXA Unspecified fall, initial encounter; M70.41 Prepatellar bursitis, right knee; F17.200 Nicotine dependence, unspecified, uncomplicated; K21.9 Gastro-esophageal reflux disease without esophagitis; I10 Essential (primary) hypertension; Y92.410 Unspecified street and highway as the place of occurrence of the external cause; Y93.89 Activity, other specified; Y99.9 Unspecified external cause status; Z79.811 Long term (current) use of aromatase inhibitors; Z79.899 Other long term (current) drug therapy; Z23 Encounter for immunization

== ENCOUNTER → 2024-04-27 | Outpatient (CLI) | payer MEDICAID, OTHER, SELFPAY ==
[~2024-04-27] MED LIST changes: +CEPH500C PO; +ONDA-282 PO; -ONDA4TAB6 PO
[2024-04-27 14:07] LABS: BASO % 0.6 % (0.0-1.0); EOS # 0.1 10^3/uL (0.0-0.5); EOS % 0.7 % (0.0-3.0); HEMATOCRIT 36.5 % (36.0-47.0); HEMOGLOBIN 12.6 g/dl (12.0-15.5); LYMPH # 2.1 10^3/uL (1.5-5.0); LYMPH % 29.2 % (24.0-44.0); MEAN CORPUSCULAR HEMOGLOBIN 36.2 pg (27.0-33.0); MEAN CORPUSCULAR HGB CONC 34.5 g/dl (32.0-36.5); MEAN CORPUSCULAR VOLUME 104.9 fl (80.0-96.0); MONO # 0.5 10^3/uL (0.0-0.8); MONO % 6.9 % (2.0-8.0); NEUTROPHILS # 4.4 10^3/uL (1.5-8.5); NEUTROPHILS % 62.3 % (36.0-66.0); PLATELET COUNT, AUTOMATED 146 10^3/uL (150-450); RED BLOOD COUNT 3.48 10^6/uL (4.00-5.40); WHITE BLOOD COUNT 7.1 10^3/uL (4.0-10.0)
[2024-04-27 14:39] LABS: ALBUMIN 3.5 G/DL (3.2-5.2); ALKALINE PHOSPHATASE 111 U/L (46-116); ALT/SGPT 34 U/L (7.0-40); AST/SGOT 86 U/L (<34); BILIRUBIN,TOTAL 0.5 MG/DL (0.3-1.2); BLOOD UREA NITROGEN 10 MG/DL (9-23); CARBON DIOXIDE LEVEL 29 MMOL/L (20-31); CHLORIDE LEVEL 99 MMOL/L (98-107); CREATININE FOR GFR 0.47 MG/DL (0.55-1.30); FOLATE 5.8 NG/ML (>5.4); GLOMERULAR FILTRATION RATE > 60.0 (>60); GLUCOSE, FASTING 115 MG/DL (60-100); HEMOGLOBIN A1c 4.6 % (4.0-6.0); POTASSIUM SERUM 3.4 MMOL/L (3.5-5.1); SODIUM LEVEL 134 MMOL/L (136-145); TOTAL PROTEIN 6.8 G/DL (5.7-8.2); VITAMIN B12 LEVEL 411 PG/ML (211-911)
[2024-05-07 09:09] LABS: ALBUMIN SPEP 3.8 g/dL (2.9-4.4); ALPHA-1-GLOBULINS SO 0.4 g/dL (0.0-0.4); ALPHA-2-GLOBULINS SO 0.7 g/dL (0.4-1.0); BETA-GLOBULIN SO 1.1 g/dL (0.7-1.3); GAMMA GLOBULINS SO 1.1 g/dL (0.4-1.8); IMMUNOTYPING SERUM IGA SO 344 mg/dL (87-352); IMMUNOTYPING SERUM IGM SO 155 mg/dL (26-217); T P ELECTROPHORESIS SO 7.1 g/dL (6.0-8.5); VITAMIN B6,PYRIDOXAL PHOSPHATE 4.1 ug/L (3.4-65.2); VITAMIN E(GAMMA TOCOPHEROL) 1.3 mg/L (0.7-4.9)
== END ==
LOC: M LAB 13:31
PROVIDERS: ATTEND Psychiatry & Neurology Neurology
DX: E11.9 Type 2 diabetes mellitus without complications (principal); R20.2 Paresthesia of skin; D51.9 Vitamin B12 deficiency anemia, unspecified

== ENCOUNTER → 2024-06-19 | Outpatient (CLI) | payer OTHER | LOC: M PLAIMG 12:58 | PROVIDERS: ATTEND Physician Assistant | DX: M25.361 Other instability, right knee (principal) ==

== ENCOUNTER → 2024-09-03 | Outpatient (REF) | payer OTHER | LOC: M LAB REF 18:20 | PROVIDERS: ATTEND Physician Assistant | DX: B34.9 Viral infection, unspecified (principal) ==

== ENCOUNTER → 2024-09-22 | Outpatient (REF) | payer OTHER, MEDICAID ==
[2024-09-23 14:21] LABS: ALBUMIN 4.1 G/DL (3.2-5.2); BILIRUBIN,DIRECT 0.2 MG/DL (<0.4); BILIRUBIN,TOTAL 0.4 MG/DL (0.3-1.2); TOTAL PROTEIN 7.6 G/DL (5.7-8.2)
== END ==
LOC: M LAB REF 13:23
PROVIDERS: ATTEND Pediatrics
DX: K75.81 Nonalcoholic steatohepatitis (NASH) (principal)

== ENCOUNTER → 2024-12-18 | Outpatient (REF) | payer OTHER | LOC: M LAB REF 20:19 | PROVIDERS: ATTEND Physician Assistant Medical | DX: R05.9 Cough, unspecified (principal) ==

== ENCOUNTER → 2025-01-19 | Outpatient (REF) | payer OTHER, MEDICAID ==
[2025-01-19 18:32] LABS: ALKALINE PHOSPHATASE 80 U/L (35-104); ALT/SGPT 22 U/L (7.0-40); AST/SGOT 25 U/L (<34); BILIRUBIN,DIRECT 0.2 MG/DL (<0.4); BILIRUBIN,TOTAL 0.6 MG/DL (0.3-1.2); TOTAL PROTEIN 7.2 G/DL (5.7-8.2)
[2025-01-19 18:44] LABS: HEPATITIS B SURFACE ANTIGEN NEGATIVE (NEGATIVE)
[2025-01-22 09:28] LABS: HEPATITIS B CORE ANTIBODY IGG NON-REACTIVE (NON-REACTIVE)
[2025-01-22 12:36] LABS: C REACTIVE PROTEIN QUANTITATIV < 0.50 MG/DL (<1.0)
[2025-01-22 16:22] LABS: ANTI-MITOCHONDRIAL ANTIBODY NEGATIVE (NEGATIVE)
[2025-01-25 16:17] LABS: HEPATITIS BE ANTIBODY Nonreactive (NON REACTIV); HEPATITIS BE ANTIGEN Nonreactive (NON REACTIV)
== END ==
LOC: M LAB REF 17:44
PROVIDERS: ATTEND Pediatrics
DX: R74.01 Elevation of levels of liver transaminase levels (principal)

== ENCOUNTER 2025-02-10 11:27 | Emergency (ER) | payer MEDICAID, OTHER ==
[~2025-02-10] VITALS: Ht 157.5 cm; Wt 56.3 kg
[2025-02-10 11:46] VITALS: TEMP 94.1
[2025-02-10 11:49] LABS: VENOUS BASE EXCESS -1.8 (-2.0-2.0); VENOUS HCO3 19.3 MMOL/L (23.0-27.0); VENOUS O2 SATURATION 93.2 % (60.0-80.0); VENOUS PARTIAL PRESSURE CO2 25.6 mmHg (38.0-50.0); VENOUS PARTIAL PRESSURE O2 64.5 mmHg (30.0-50.0); VENOUS PH 7.496 UNITS (7.330-7.430); VENOUS STANDARD HCO3 22.8 MMOL/L; VENOUS TOTAL CO2 20.1 MMOL/L (24.0-28.0)
[2025-02-10 12:01] LABS: BASO # 0.1 10^3/uL (0.0-0.2); BASO % 0.7 % (0.0-1.0); EOS % 0.3 % (0.0-3.0); HEMATOCRIT 45.9 % (36.0-47.0); LYMPH # 4.8 10^3/uL (1.5-5.0); MEAN CORPUSCULAR HEMOGLOBIN 32.3 pg (27.0-33.0); MEAN CORPUSCULAR HGB CONC 34.9 g/dl (32.0-36.5); MEAN CORPUSCULAR VOLUME 92.5 fl (80.0-96.0); MONO # 0.6 10^3/uL (0.0-0.8); MONO % 5.3 % (2.0-8.0); NEUTROPHILS # 5.4 10^3/uL (1.5-8.5); NEUTROPHILS % 49.4 % (36.0-66.0); PLATELET COUNT, AUTOMATED 232 10^3/uL (150-450); RED BLOOD COUNT 4.96 10^6/uL (4.00-5.40); WHITE BLOOD COUNT 10.9 10^3/uL (4.0-10.0)
[2025-02-10 12:24] LABS: AMPHETAMINES LEVEL URINE NEGATIVE (NEGATIVE); BARBITURATES URINE NEGATIVE (NEGATIVE); BENZODIAZEPINES URINE NEGATIVE (NEGATIVE); COCAINE METABOLITE URINE NEGATIVE (NEGATIVE); METHADONE URINE NEGATIVE (NEGATIVE); OPIATES URINE NEGATIVE (NEGATIVE); PHENCYCLIDINE URINE NEGATIVE (NEGATIVE)
[2025-02-10 12:25] LABS: ETHYL ALCOHOL (ETHANOL) 0.014 % (0.000-0.010)
[2025-02-10 12:27] LABS: ALBUMIN 4.6 G/DL (3.2-5.2); ALKALINE PHOSPHATASE 103 U/L (35-104); ALT/SGPT 21 U/L (7.0-40); AST/SGOT 36 U/L (<34); BILIRUBIN,DIRECT 0.4 MG/DL (<0.4); BILIRUBIN,TOTAL 1.2 MG/DL (0.3-1.2); BLOOD UREA NITROGEN 13 MG/DL (9-23); CALCIUM LEVEL 10.3 MG/DL (8.5-10.1); CARBON DIOXIDE LEVEL 18 MMOL/L (20-31); CHLORIDE LEVEL 99 MMOL/L (98-107); CREATININE FOR GFR 0.49 MG/DL (0.55-1.30); GLOMERULAR FILTRATION RATE > 60.0 (>60); GLUCOSE, FASTING 121 MG/DL (60-100); POTASSIUM SERUM 3.6 MMOL/L (3.5-5.1); SALICYLATE LEVEL < 3.0 MG/DL (<30); SODIUM LEVEL 141 MMOL/L (136-145); TOTAL PROTEIN 8.2 G/DL (5.7-8.2)
[2025-02-10 12:29] LABS: CANNABINOIDS URINE POSITIVE (NEGATIVE)
[2025-02-10] MEDS ORDERED: NALOXONE 2MG/2ML SYRINGE As Ordered ONE (12:30)
[2025-02-10 12:31] LABS: THYROID STIMULATING HORMONE 2.644 uIU/ML (0.55-4.78)
[2025-02-10] MEDS: NS (Normal Saline) 0.9% 1,000 ML IV ONE (12:31)
[2025-02-10 12:36] LABS: CPK CREATINE PHOSPHOKINASE 66 U/L (34-145)
[2025-02-10] MEDS: ONDANSETRON 4MG 2ML VIAL IV ONE (12:40)
[2025-02-10] MEDS: NALOXONE 2MG/2ML SYRINGE IV STA (12:42)
[2025-02-10 12:50] LABS: HCG, SERUM QUALITATIVE NEGATIVE (NEGATIVE); OSMOLALITY SERUM 304 MOSM/KG (275-295)
[2025-02-10] MEDS: HALOPERIDOL LACTATE 5MG/ML VIAL IV ONE (16:53)
[2025-02-10 18:15] VITALS: BP 120/89; O2SAT 97
[2025-02-10] MEDS: OVERDOSE RESCUE KIT XX SCH (18:28)
== END 2025-02-10 18:29 | disposition home or self-care (01) ==
LOC: M ED 11:27 → EDBD 11:27 → M ED 18:29
DX: F19.10 Other psychoactive substance abuse, uncomplicated (principal); R51.9 Headache, unspecified; I10 Essential (primary) hypertension; F32.A Depression, unspecified; Z79.899 Other long term (current) drug therapy; Z79.83 Long term (current) use of bisphosphonates; Z79.2 Long term (current) use of antibiotics
CPT/HCPCS: 70450; 71045; 80047; 80048; 80076; 80143; 80307; 82077; 82550; 82803; 83930; 84443; 84702; 84703; 85025; 93005; 93041; 94760; 96374; 96375; 99285; J1630; J2310; J2405

== ENCOUNTER → 2025-07-06 | Outpatient (CLI) | payer OTHER ==
[~2025-07-06] MED LIST changes: +ISON1TAB5; +LUMA21CA; +RIFA150T; +TRIA1CR80
[2025-07-06 14:02] LABS: BASO # 0.1 10^3/uL (0.0-0.2); BASO % 0.6 % (0.0-1.0); EOS # 0.1 10^3/uL (0.0-0.5); EOS % 1.0 % (0.0-3.0); LYMPH # 3.0 10^3/uL (1.5-5.0); LYMPH % 37.3 % (24.0-44.0); MONO # 0.5 10^3/uL (0.0-0.8); MONO % 6.4 % (2.0-8.0); NEUTROPHILS # 4.4 10^3/uL (1.5-8.5); NEUTROPHILS % 54.5 % (36.0-66.0); PLATELET COUNT, AUTOMATED 197 10^3/uL (150-450)
[2025-07-06 14:37] LABS: ALT/SGPT 19 U/L (7.0-40); AST/SGOT 24 U/L (<34); CALCIUM LEVEL 9.8 MG/DL (8.5-10.1); CARBON DIOXIDE LEVEL 30 MMOL/L (20-31); CHLORIDE LEVEL 105 MMOL/L (98-107); CREATININE FOR GFR 0.64 MG/DL (0.55-1.30); GLOMERULAR FILTRATION RATE > 90.0 (>60); POTASSIUM SERUM 3.3 MMOL/L (3.5-5.1); SODIUM LEVEL 145 MMOL/L (136-145)
== END ==
LOC: M PLALAB 11:25
PROVIDERS: ATTEND Internal Medicine Infectious Disease
DX: Z22.7 Latent tuberculosis (principal)

== ENCOUNTER 2025-11-22 08:21 | Day surgery (SDC) | payer OTHER ==
[~2025-11-22] VITALS: Ht 157.5 cm; Wt 54.4 kg
[~2025-11-22 08:21] MED LIST changes: +LIDOCAINE 2% 100 MG/5 ML SDV (FOR ANES.) As Ordered ONE; +ONDANSETRON 4MG/2ML VIAL As Ordered ONE; +OXYMETAZOLINE 0.05% NASAL SPRAY As Ordered ONE; +ROCURONIUM BROMIDE 50MG/5ML VIAL As Ordered ONE; +SUGAMMADEX SODIUM 500 MG/5 ML VIAL As Ordered ONE; +dexAMETHasone 4 MG/ML 1 ML VIAL As Ordered ONE
[2025-11-22] MEDS ORDERED: LR 1,000 ML IV SCH (08:35)
[2025-11-22] MEDS ORDERED: IBUP-1114 PO (09:03)
[2025-11-22] MEDS ORDERED: ACET-907 PO (09:03)
[2025-11-22] MEDS ORDERED: MIDAZOLAM INJ 2 MG/2 ML VIAL As Ordered ONE (09:09)
[2025-11-22] MEDS ORDERED: dexAMETHasone 4 MG/ML 1 ML VIAL IV ONE (10:00)
[2025-11-22] MEDS: AMPICILLIN SOD/SULBACTAM SOD 3 GM in D5W MINI-BAG 100 ML IV ONE (10:32)
[2025-11-22] MEDS ORDERED: ACETAMINOPHEN 1000MG/100ML IV BAG As Ordered ONE (10:47)
[2025-11-22] MEDS: CHLORHEXIDINE GLUCONATE 0.12% 15 ML UDC As Ordered ONE (10:52)
[2025-11-22] MEDS ORDERED: HYDROMORPHONE HCL 0.5 MG/0.5 ML SYRINGE IV PRN (11:10)
[2025-11-22] MEDS ORDERED: MORPHINE 2 MG/ML 1 ML VIAL IV PRN (11:10)
[2025-11-22 12:40] VITALS: BP 108/74; TEMP 98.2; O2SAT 95
== END 2025-11-22 13:11 | disposition home or self-care (01) ==
LOC: M SDC 08:21
PROVIDERS: ATTEND Dentist
DX: K02.9 Dental caries, unspecified (principal); J30.1 Allergic rhinitis due to pollen; F17.210 Nicotine dependence, cigarettes, uncomplicated
CPT/HCPCS: 81025; 88300; D7210; D7310; J0131; J0295; J0666; J1100; J2250; J2405; J3010